=== PATIENT | male | born 1995 | race African-American/Black ===

== ENCOUNTER 2016-04-30 17:00 | Emergency (ER) | payer OTHER ==
[~2016-04-30] VITALS: Ht 187.9 cm; Wt 72.6 kg
[~2016-04-30 17:00] MED LIST: ACETAMINOPHEN325 M2 PO; AMOXICILLIN500 MG PO; AUGMENTIN 500 M1 TAB PO; FLEXERIL10 MG PO; HYDROCODONE BIT1 T11 PO; MIRALAX POWDER17 G1 PO; MOTRIN600 MG PO; MOTRIN800 MG PO; Motrin,Rufen800 MG PO; NAPROSYN500 MG PO; NORCO 5-325 TA1 EACH PO; PENICILLIN VK500 MG PO; PREDNISONE10 MG PO; Peridex 473 ML473 ML PO; ROBITUSSIN AC 110 ML PO; ULTRAM50 MG PO; VENTOLIN H0.09 MG/AC INH; XARE20MG PO; XARELTO15 M1 PO
[2016-04-30 17:31] VITALS: BP 108/80
[2016-05-27] MEDS ORDERED: ZOFRAN ODT4 MG SL (22:53)
[2016-06-08] MEDS ORDERED: Motrin,Rufen800 MG PO (05:06)
[2016-06-08] MEDS ORDERED: AUGMENTIN 500 M1 TAB PO (05:06)
[2016-07-03] MEDS ORDERED: NAPROSYN500 MG PO (21:51)
[2016-07-03] MEDS ORDERED: CYCLOBENZAPRINE10 MG PO (21:51)
== END 2016-04-30 18:40 | disposition home or self-care (01) ==
LOC: ED 17:00
DX: R00.2 Palpitations (principal); Z79.899 Other long term (current) drug therapy; Z86.718 Personal history of other venous thrombosis and embolism

== ENCOUNTER 2016-05-04 04:19 | Emergency (ER) | payer OTHER ==
[~2016-05-04] VITALS: Ht 187.9 cm; Wt 73.0 kg
[2016-05-04] MEDS ORDERED: CELEXA20 MG PO (04:44)
[2016-05-04] MEDS ORDERED: ATIVAN0.5 MG PO (04:45)
[2016-05-04 05:39] VITALS: BP 118/77
[2016-05-27] MEDS ORDERED: ZOFRAN ODT4 MG SL (22:53)
[2016-06-08] MEDS ORDERED: AUGMENTIN 500 M1 TAB PO (05:06)
[2016-06-08] MEDS ORDERED: Motrin,Rufen800 MG PO (05:06)
[2016-07-03] MEDS ORDERED: NAPROSYN500 MG PO (21:51)
[2016-07-03] MEDS ORDERED: CYCLOBENZAPRINE10 MG PO (21:51)
== END 2016-05-04 07:02 | disposition home or self-care (01) ==
LOC: ED 04:19
DX: R00.2 Palpitations (principal); F17.200 Nicotine dependence, unspecified, uncomplicated; J45.909 Unspecified asthma, uncomplicated; D68.2 Hereditary deficiency of other clotting factors; E78.00 Pure hypercholesterolemia, unspecified; Z86.718 Personal history of other venous thrombosis and embolism

== ENCOUNTER 2016-07-12 02:04 | Emergency (ER) | payer SELFPAY ==
[~2016-07-12] VITALS: Ht 187.9 cm; Wt 73.5 kg
[~2016-07-12 02:04] MED LIST changes: +ATIVAN0.5 MG PO; +CELEXA20 MG PO; +CYCLOBENZAPRINE10 MG PO; +ZOFRAN ODT4 MG SL
== END 2016-07-12 06:26 | disposition home or self-care (01) ==
LOC: ED 02:04
DX: R20.2 Paresthesia of skin (principal); J45.909 Unspecified asthma, uncomplicated; E87.6 Hypokalemia; Z86.718 Personal history of other venous thrombosis and embolism; Z79.899 Other long term (current) drug therapy

== ENCOUNTER 2016-08-04 15:37 | Emergency (ER) | payer SELFPAY ==
[~2016-08-04] VITALS: Ht 187.9 cm; Wt 72.6 kg
[2016-08-04 15:43] VITALS: BP 141/71
[2016-08-04 16:03] LABS: BASO # 0.1 10*3/uL (0.0-0.1); BASO % 1.4 % (0.0-1.0); EOS # 0.2 10*3/uL (0.0-0.4); EOS % 4.3 % (1.0-4.0); HEMATOCRIT 43.8 % (42.0-52.0); HEMOGLOBIN 14.4 g/dl (14.0-18.0); LYMPH # 1.8 10*3/uL (1.3-4.4); LYMPH % 31.5 % (27.0-41.0); MEAN CELL VOLUME 83.1 fl (80.0-94.0); MEAN CORPUSCULAR HGB 27.3 pg (27.0-31.0); MEAN CORPUSCULAR HGB CONC 32.9 g/dl (33.0-37.0); MEAN PLATELET VOLUME 9.2 fl (9.6-12.3); MONO # 0.3 10*3/uL (0.1-1.0); MONO % 4.4 % (3.0-9.0); NEUT # 3.3 10*3/uL (2.3-7.9); NEUT % 58.2 % (47.0-73.0); PLATELET COUNT AUTOMATED 242 10*3/uL (130-400); RED BLOOD COUNT 5.27 10*6/uL (4.50-5.90); RED CELL DISTRI WIDTH 12.8 % (0-14.5); WHITE BLOOD COUNT 5.6 10*3/uL (4.8-10.8)
[2016-08-04 16:14] LABS: INTERNATIONAL NORM RATIO 1.3 (2.0-3.5)
[2016-08-04 16:18] LABS: ALBUMIN 4.3 gm/dl (3.1-4.5); ALKALINE PHOSPHATASE 61 U/L (45-117); BILIRUBIN, TOTAL 0.5 mg/dl (0.2-1.0); BUN 13 mg/dl (7-24); CARBON DIOXIDE 26 mmol/L (21-32); CHLORIDE 110 mmol/L (98-107); CPK 232 U/L (39-308); EST GLOM FILT AFRICAN AMERICAN > 60 ml/min; GLUCOSE 86 mg/dL (65-99); MAGNESIUM 2.4 mg/dL (1.5-2.1); POTASSIUM 3.6 mmol/L (3.5-5.1); SGOT/AST 12 IU/L (3-35); SGPT/ALT 14 U/L (12-78); SODIUM 143 mmol/L (136-145); TOTAL PROTEIN 7.4 gm/dL (6.4-8.2)
[2016-08-04 16:19] LABS: C-REACTIVE PROTEIN < 0.29 MG/DL (0-0.3); TROPONIN I < 0.015 ng/ml (<0.045)
[2016-08-04] MEDS ORDERED: XARE20MG PO (17:37)
== END 2016-08-04 17:49 | disposition home or self-care (01) ==
LOC: ED 15:37
PROVIDERS: Student in an Organized Health Care Education/Training Program
DX: M79.603 Pain in arm, unspecified (principal); R53.1 Weakness; J45.909 Unspecified asthma, uncomplicated; Z86.718 Personal history of other venous thrombosis and embolism

== ENCOUNTER 2016-08-22 19:53 | Inpatient (IN) | payer SELFPAY ==
[~2016-08-22] VITALS: Ht 187.9 cm; Wt 70.9 kg
--- NOTE | ~2016-08-22 | WRIGHTHP ---
[place], [place] PATIENT HISTORY AND PHYSICAL EXAM NAME: EULOGIO HAHN [facility] #: [id number] UNIT #: [id number] ROOM: 416 DOCTOR: LA INFANTE MD BIRTHDATE: [birth year] DOS: 08/23/2016 SUBJECTIVE: The patient has been admitted to the hospital last evening with history of chest pain. He started having this chest pain radiated to the shoulder. The patient is having history of factor V Leiden deficiency due to that, he gets clotting of his veins. 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 The patient at present is not in distress. He denies any chest pain, no difficulty breathing, no nausea, no vomiting. OBJECTIVE: VITAL SIGNS: His temperature is 97.3, pulse is 74, respirations 18, and blood pressure 130/72, pulse oximetry is 100. ENT: Unremarkable. No glandular enlargement. NECK: Trachea is center. Neck veins are not distended. EXTREMITIES: Carotid pulses are normal. There is some swelling of the right upper arm, but there is no tenderness and pulsation is normally in both the arms. HEART: Regular, no murmur. LUNGS: Clear. No crepitus or rhonchi. ABDOMEN: Soft. Liver and spleen not palpable. No area of tenderness. No mass palpable. PAST MEDICAL HISTORY: The patient has history of acute deep vein thrombosis of the right upper extremity, also history of thrombosis right basilic vein, history of asthma and history of depression. The patient is chewing tobacco, nicotine dependence I have counseled him in detail that he should stop chewing tobacco. He does not drink any alcohol and does not do any street drugs. FAMILY HISTORY: He is adopted, so he does not know anything about his family. ALLERGIES: No known allergy. The patient is not taking any present medication, but he is to be taking Xarelto 20 mg daily. DIAGNOSES: Factor V Leiden deficiency leading to reckless attack of deep vein thrombosis with chest pain, which seems to be noncardiac origin. HOSPITAL COURSE: The patient at present is feeling comfortable. He will receive his dose of Xarelto today and also he will get 2 extra pills of Xarelto or he can by his Xarelto on Thursday and we will make arrangement for that. He will be kept some samples from my office and we will follow him in the office in 1 week. LABORATORY DATA: CBC is fairly normal. Protime 11. Chest x-ray, no acute disease. Comprehensive metabolic profile shows potassium 3.2, magnesium 2.3. [place], [place] PATIENT HISTORY AND PHYSICAL EXAM NAME: EULOGIO HAHN UNIT #: [id number] ROOM: [facility] DOCTOR: LA INFANTE MD BIRTHDATE: [birth year] show fairly good. His CK-MB and troponin level on 3 different occasions is normal. Hemoglobin is 5.4. Ultrasound of the upper extremity no deep vein thrombosis. LA INFANTE MD CM:HISPHYS:PATIENT HISTORY AND PHYSICAL EXAMINATION 1507 1829 LA INFANTE MD 08/23/16 1830 interface
[2016-08-22 11:49] VITALS: BP 110/62
[2016-08-22 19:59] VITALS: BP 136/84
[2016-08-22 20:41] LABS: BASO # 0.1 10*3/uL (0.0-0.1); BASO % 1.2 % (0.0-1.0); EOS # 0.3 10*3/uL (0.0-0.4); EOS % 4.8 % (1.0-4.0); HEMATOCRIT 43.1 % (42.0-52.0); HEMOGLOBIN 14.1 g/dl (14.0-18.0); LYMPH % 46.5 % (27.0-41.0); MEAN CELL VOLUME 83.7 fl (80.0-94.0); MEAN CORPUSCULAR HGB 27.4 pg (27.0-31.0); MEAN CORPUSCULAR HGB CONC 32.7 g/dl (33.0-37.0); MEAN PLATELET VOLUME 9.4 fl (9.6-12.3); MONO # 0.3 10*3/uL (0.1-1.0); MONO % 5.2 % (3.0-9.0); NEUT # 2.7 10*3/uL (2.3-7.9); NEUT % 42.1 % (47.0-73.0); PLATELET COUNT AUTOMATED 237 10*3/uL (130-400); RED BLOOD COUNT 5.15 10*6/uL (4.50-5.90); WHITE BLOOD COUNT 6.5 10*3/uL (4.8-10.8)
[2016-08-22 20:59] LABS: ALBUMIN 4.4 gm/dl (3.1-4.5); ALKALINE PHOSPHATASE 57 U/L (45-117); BILIRUBIN, TOTAL 0.6 mg/dl (0.2-1.0); BUN 15 mg/dl (7-24); CARBON DIOXIDE 26 mmol/L (21-32); CHLORIDE 105 mmol/L (98-107); CPK 76 U/L (39-308); EST GLOM FILT AFRICAN AMERICAN > 60 ml/min; GLUCOSE 84 mg/dL (65-99); MAGNESIUM 2.3 mg/dL (1.5-2.1); POTASSIUM 3.4 mmol/L (3.5-5.1); SGOT/AST 10 IU/L (3-35); SGPT/ALT 11 U/L (12-78); SODIUM 141 mmol/L (136-145); TOTAL PROTEIN 7.3 gm/dL (6.4-8.2)
[2016-08-22 21:02] LABS: CKMB < 0.5 ng/ml (0.5-3.6); TROPONIN I < 0.015 ng/ml (<0.045)
[2016-08-22 23:49] VITALS: BP 110/62
[2016-08-23] VITALS: BP 110/62
[2016-08-23 00:44] LABS: CPK 71 U/L (39-308)
[2016-08-23 00:45] LABS: CKMB < 0.5 ng/ml (0.5-3.6); TROPONIN I < 0.015 ng/ml (<0.045)
[2016-08-23 06:56] LABS: BASO # 0.1 10*3/uL (0.0-0.1); BASO % 1.2 % (0.0-1.0); EOS # 0.3 10*3/uL (0.0-0.4); EOS % 5.9 % (1.0-4.0); HEMATOCRIT 42.7 % (42.0-52.0); LYMPH # 2.6 10*3/uL (1.3-4.4); LYMPH % 50.7 % (27.0-41.0); MEAN CELL VOLUME 83.2 fl (80.0-94.0); MEAN CORPUSCULAR HGB 27.3 pg (27.0-31.0); MEAN CORPUSCULAR HGB CONC 32.8 g/dl (33.0-37.0); MONO # 0.3 10*3/uL (0.1-1.0); MONO % 5.7 % (3.0-9.0); NEUT # 1.8 10*3/uL (2.3-7.9); NEUT % 36.3 % (47.0-73.0); PLATELET COUNT AUTOMATED 223 10*3/uL (130-400); RED BLOOD COUNT 5.13 10*6/uL (4.50-5.90); WHITE BLOOD COUNT 5.1 10*3/uL (4.8-10.8)
[2016-08-23 07:07] LABS: CPK 64 U/L (39-308)
[2016-08-23 07:08] LABS: CKMB < 0.5 ng/ml (0.5-3.6); TROPONIN I < 0.015 ng/ml (<0.045)
[2016-08-23 07:32] LABS: ALBUMIN 3.9 gm/dl (3.1-4.5); BUN 13 mg/dl (7-24); CARBON DIOXIDE 26 mmol/L (21-32); CHLORIDE 107 mmol/L (98-107); GLUCOSE 74 mg/dL (65-99); POTASSIUM 3.6 mmol/L (3.5-5.1); SODIUM 139 mmol/L (136-145)
[2016-08-23 07:41] LABS: ALKALINE PHOSPHATASE 52 U/L (45-117); BILIRUBIN, TOTAL 0.9 mg/dl (0.2-1.0); CHOLESTEROL 120 mg/dL (<200); EST GLOM FILT AFRICAN AMERICAN > 60 ml/min; FREE T4 0.94 ng/dl (0.76-1.46); HDL CHOLESTEROL 47 mg/dl (40-60); LDL CHOLESTEROL 64 mg/dL (9-159); MAGNESIUM 2.2 mg/dL (1.5-2.1); PHOSPHOROUS 3.7 mg/dL (2.5-4.9); SGOT/AST 7 IU/L (3-35); SGPT/ALT 11 U/L (12-78); THYROID STIM HORMONE (HS) 0.449 uIU/ml (0.358-4.75); TOTAL PROTEIN 6.7 gm/dL (6.4-8.2); TRIGLYCERIDES 46 mg/dl (<150); VLDL CHOLESTEROL 9 mg/dL (6-40)
[2016-08-23 07:53] LABS: INTERNATIONAL NORM RATIO 1.2 (2.0-3.5); PROTHROMBIN TIME 12.7 SECONDS (9.0-12.4)
[2016-08-23 08:00] VITALS: BP 110/60
[2016-08-23 08:16] LABS: HEMOGLOBIN A1c 5.4 % (4.8-5.6)
[2016-08-23 12:00] VITALS: BP 109/52
[2016-08-23 12:13] LABS: CKMB < 0.5 ng/ml (0.5-3.6); CPK 65 U/L (39-308); TROPONIN I < 0.015 ng/ml (<0.045)
[2016-08-25 11:37] LABS: FOLIC ACID 6.65 ng/mL (>5.38)
== END 2016-08-23 15:54 | disposition home or self-care (01) | DRG 313 ==
LOC: ED 19:53 → EDHOLD 22:30 → 4E 23:19
PROVIDERS: Hospitalist; Registered Nurse
DX: R07.9 Chest pain, unspecified (principal); D68.51 Activated protein C resistance; F32.9 Major depressive disorder, single episode, unspecified; J45.909 Unspecified asthma, uncomplicated; Z79.01 Long term (current) use of anticoagulants; Z79.899 Other long term (current) drug therapy; Z82.49 Family history of ischemic heart disease and other diseases of the circulatory system; Z80.9 Family history of malignant neoplasm, unspecified; Z72.89 Other problems related to lifestyle; Z86.718 Personal history of other venous thrombosis and embolism; Z71.6 Tobacco abuse counseling

== ENCOUNTER 2016-09-23 09:52 | Emergency (ER) | payer SELFPAY ==
[~2016-09-23] VITALS: Ht 187.9 cm; Wt 74.4 kg
[2016-09-23 10:20] VITALS: BP 112/74
== END 2016-09-23 11:42 | disposition home or self-care (01) ==
LOC: ED 09:52
DX: J02.9 Acute pharyngitis, unspecified (principal); F41.9 Anxiety disorder, unspecified; J45.909 Unspecified asthma, uncomplicated; Z79.899 Other long term (current) drug therapy; Z86.718 Personal history of other venous thrombosis and embolism

== ENCOUNTER 2016-10-05 11:01 | Emergency (ER) | payer SELFPAY ==
[2016-10-05 11:04] VITALS: BP 136/66
[2016-10-05] MEDS ORDERED: 'PARAFON FORTE500 M1 PO (11:30)
[2016-10-05] MEDS ORDERED: NAPROSYN500 MG PO (11:30)
== END 2016-10-05 12:21 | disposition home or self-care (01) ==
LOC: ED 11:01
DX: M79.601 Pain in right arm (principal); R03.0 Elevated blood-pressure reading, without diagnosis of hypertension; J45.909 Unspecified asthma, uncomplicated; Z79.899 Other long term (current) drug therapy; Z86.718 Personal history of other venous thrombosis and embolism

== ENCOUNTER 2016-10-26 01:58 | Emergency (ER) | payer SELFPAY ==
[~2016-10-26] VITALS: Ht 187.9 cm; Wt 74.8 kg
[~2016-10-26 01:58] MED LIST changes: +'PARAFON FORTE500 M1 PO
[2016-10-26 02:05] VITALS: BP 130/50
[2016-10-26] MEDS ORDERED: GAS RELIEF 8080 MG PO (03:17)
[2016-10-26] MEDS ORDERED: CARAFATE1 G1 PO (03:17)
[2016-10-26] MEDS ORDERED: NEXIUM40 MG PO (03:17)
== END 2016-10-26 03:28 | disposition home or self-care (01) ==
LOC: ED 01:58
DX: R10.13 Epigastric pain (principal); R07.89 Other chest pain; R42 Dizziness and giddiness; R53.1 Weakness; R41.0 Disorientation, unspecified; J45.909 Unspecified asthma, uncomplicated; F17.220 Nicotine dependence, chewing tobacco, uncomplicated; Z79.899 Other long term (current) drug therapy; Z86.718 Personal history of other venous thrombosis and embolism

== ENCOUNTER 2016-12-13 17:00 | Emergency (ER) | payer OTHER ==
[~2016-12-13] VITALS: Wt 72.6 kg
[~2016-12-13 17:00] MED LIST changes: +CARAFATE1 G1 PO; +GAS RELIEF 8080 MG PO; +NEXIUM40 MG PO
[2016-12-13 17:09] VITALS: BP 132/77
[2016-12-13 17:37] LABS: BASO # 0.1 10*3/uL (0.0-0.1); EOS # 0.3 10*3/uL (0.0-0.4); EOS % 4.2 % (1.0-4.0); HEMATOCRIT 41.5 % (42.0-52.0); LYMPH # 2.2 10*3/uL (1.3-4.4); LYMPH % 34.9 % (27.0-41.0); MEAN CELL VOLUME 82.3 fl (80.0-94.0); MEAN CORPUSCULAR HGB 27.8 pg (27.0-31.0); MEAN CORPUSCULAR HGB CONC 33.7 g/dl (33.0-37.0); MEAN PLATELET VOLUME 9.4 fl (9.6-12.3); MONO # 0.3 10*3/uL (0.1-1.0); MONO % 4.7 % (3.0-9.0); NEUT # 3.4 10*3/uL (2.3-7.9); PLATELET COUNT AUTOMATED 239 10*3/uL (130-400); RED BLOOD COUNT 5.04 10*6/uL (4.50-5.90); RED CELL DISTRI WIDTH 13.3 % (0-14.5); WHITE BLOOD COUNT 6.2 10*3/uL (4.8-10.8)
[2016-12-13 17:54] LABS: ALBUMIN 4.4 gm/dl (3.1-4.5); ALKALINE PHOSPHATASE 65 U/L (45-117); BILIRUBIN, TOTAL 0.5 mg/dl (0.2-1.0); BUN 13 mg/dl (7-24); CARBON DIOXIDE 24 mmol/L (21-32); CHLORIDE 108 mmol/L (98-107); EST GLOM FILT AFRICAN AMERICAN > 60 ml/min; GLUCOSE 87 mg/dL (65-99); POTASSIUM 3.3 mmol/L (3.5-5.1); SGOT/AST 9 IU/L (3-35); SGPT/ALT 14 U/L (12-78); SODIUM 142 mmol/L (136-145); TOTAL PROTEIN 7.7 gm/dL (6.4-8.2)
== END 2016-12-13 18:28 | disposition home or self-care (01) ==
LOC: ED 17:00
PROVIDERS: Nurse Practitioner Family
DX: R42 Dizziness and giddiness (principal); T48.6X5A Adverse effect of antiasthmatics, initial encounter; R03.0 Elevated blood-pressure reading, without diagnosis of hypertension; Z79.899 Other long term (current) drug therapy; Y92.9 Unspecified place or not applicable

== ENCOUNTER 2016-12-14 01:10 | Emergency (ER) | payer OTHER ==
[~2016-12-14] VITALS: Ht 187.9 cm; Wt 72.6 kg
--- NOTE | ~2016-12-14 | EKG ---
[place], [place] ELECTROCARDIOGRAM REPORT NAME: EULOGIO HAHN UNIT #: [id number] ROOM: DOCTOR: STACY CRENSHAW MD BIRTHDATE: [birth year] DOS: 12/14/2016 TIME: 01:45:24 RATE AND RHYTHM: Sinus bradycardia at 51 beats per minute. HI interval 240 milliseconds, QRS duration 103 milliseconds. Corrected QT interval is 412 milliseconds, QRS axis is 78. IMPRESSION: Sinus rhythm with prolonged HI interval possibly . STACY CRENSHAW MD CM:EKGRPT:ELECTROCARDIOGRAM REPORT 1434 1456 STACY CRENSHAW MD
[2016-12-14 01:55] LABS: BASO # 0.1 10*3/uL (0.0-0.1); BASO % 0.8 % (0.0-1.0); EOS # 0.2 10*3/uL (0.0-0.4); EOS % 3.1 % (1.0-4.0); HEMATOCRIT 42.3 % (42.0-52.0); HEMOGLOBIN 13.9 g/dl (14.0-18.0); LYMPH # 2.9 10*3/uL (1.3-4.4); LYMPH % 44.5 % (27.0-41.0); MEAN CORPUSCULAR HGB 26.9 pg (27.0-31.0); MEAN CORPUSCULAR HGB CONC 32.9 g/dl (33.0-37.0); MEAN PLATELET VOLUME 9.9 fl (9.6-12.3); MONO # 0.3 10*3/uL (0.1-1.0); MONO % 4.9 % (3.0-9.0); NEUT % 46.5 % (47.0-73.0); PLATELET COUNT AUTOMATED 239 10*3/uL (130-400); RED BLOOD COUNT 5.16 10*6/uL (4.50-5.90); RED CELL DISTRI WIDTH 13.4 % (0-14.5); WHITE BLOOD COUNT 6.5 10*3/uL (4.8-10.8)
[2016-12-14 02:08] LABS: INTERNATIONAL NORM RATIO 1.2 (2.0-3.5)
[2016-12-14 02:12] LABS: ALBUMIN 4.2 gm/dl (3.1-4.5); ALKALINE PHOSPHATASE 57 U/L (45-117); BUN 10 mg/dl (7-24); CHLORIDE 108 mmol/L (98-107); CREATININE 1.11 mg/dL (0.70-1.30); LIPASE 161 U/L (73-393); MAGNESIUM 2.4 mg/dL (1.5-2.1); POTASSIUM 3.2 mmol/L (3.5-5.1); SGOT/AST 12 IU/L (3-35); SGPT/ALT 11 U/L (12-78); SODIUM 139 mmol/L (136-145); TOTAL PROTEIN 7.4 gm/dL (6.4-8.2)
[2016-12-14 02:14] LABS: TROPONIN I < 0.015 ng/ml (<0.045)
[2016-12-14 05:35] VITALS: BP 123/72
== END 2016-12-14 05:38 | disposition home or self-care (01) ==
LOC: ED 01:10
PROVIDERS: Student in an Organized Health Care Education/Training Program
DX: T78.40XA Allergy, unspecified, initial encounter (principal); R07.9 Chest pain, unspecified; R53.1 Weakness; E86.0 Dehydration; R11.0 Nausea; J45.909 Unspecified asthma, uncomplicated; Z79.899 Other long term (current) drug therapy; Z86.718 Personal history of other venous thrombosis and embolism; X58.XXXA Exposure to other specified factors, initial encounter

== ENCOUNTER 2017-01-08 19:47 | Emergency (ER) | payer OTHER ==
[~2017-01-08] VITALS: Ht 187.9 cm; Wt 72.6 kg
[2017-01-08 20:11] LABS: BASO # 0.1 10*3/uL (0.0-0.1); BASO % 1.3 % (0.0-1.0); EOS # 0.4 10*3/uL (0.0-0.4); EOS % 6.9 % (1.0-4.0); HEMATOCRIT 42.3 % (42.0-52.0); HEMOGLOBIN 13.9 g/dl (14.0-18.0); LYMPH # 2.9 10*3/uL (1.3-4.4); LYMPH % 53.1 % (27.0-41.0); MEAN CELL VOLUME 81.8 fl (80.0-94.0); MEAN CORPUSCULAR HGB 26.9 pg (27.0-31.0); MEAN CORPUSCULAR HGB CONC 32.9 g/dl (33.0-37.0); MEAN PLATELET VOLUME 9.7 fl (9.6-12.3); MONO # 0.3 10*3/uL (0.1-1.0); MONO % 6.1 % (3.0-9.0); NEUT # 1.7 10*3/uL (2.3-7.9); NEUT % 32.4 % (47.0-73.0); PLATELET COUNT AUTOMATED 238 10*3/uL (130-400); RED BLOOD COUNT 5.17 10*6/uL (4.50-5.90); RED CELL DISTRI WIDTH 13.4 % (0-14.5); WHITE BLOOD COUNT 5.4 10*3/uL (4.8-10.8)
[2017-01-08 20:21] LABS: ACT PARTIAL THROMBO TIME 34.2 SECONDS (20.8-31.5); INTERNATIONAL NORM RATIO 1.3 (2.0-3.5)
[2017-01-08 20:28] LABS: ALBUMIN 4.4 gm/dl (3.1-4.5); ALKALINE PHOSPHATASE 57 U/L (45-117); BUN 14 mg/dl (7-24); CHLORIDE 108 mmol/L (98-107); MAGNESIUM 2.1 mg/dL (1.5-2.1); POTASSIUM 3.5 mmol/L (3.5-5.1); SGOT/AST 6 IU/L (3-35); SGPT/ALT 12 U/L (12-78); SODIUM 142 mmol/L (136-145); TOTAL PROTEIN 7.6 gm/dL (6.4-8.2); TROPONIN I < 0.015 ng/ml (<0.045)
[2017-01-08] MEDS ORDERED: ZANTAC 150150 MG PO (21:22)
[2017-01-08 21:27] VITALS: BP 126/62
== END 2017-01-08 21:31 | disposition home or self-care (01) ==
LOC: ED 19:47
PROVIDERS: Physician Assistant
DX: R10.13 Epigastric pain (principal); F17.200 Nicotine dependence, unspecified, uncomplicated; D68.51 Activated protein C resistance; Z79.899 Other long term (current) drug therapy; Z86.718 Personal history of other venous thrombosis and embolism

== ENCOUNTER 2017-02-01 11:44 | Emergency (ER) | payer OTHER ==
[~2017-02-01] VITALS: Ht 187.9 cm; Wt 72.6 kg
[~2017-02-01 11:44] MED LIST changes: +ZANTAC 150150 MG PO
[2017-02-01 11:48] VITALS: BP 121/70
[2017-02-01] MEDS ORDERED: AVPAK AZITHROM250 MG PO ×2 (13:04→13:08)
[2017-02-01] MEDS ORDERED: TESSALON PERLE100 M1 PO ×2 (13:04→13:08)
== END 2017-02-01 13:12 | disposition home or self-care (01) ==
LOC: ED 11:44
DX: J40 Bronchitis, not specified as acute or chronic (principal); Z79.899 Other long term (current) drug therapy

== ENCOUNTER 2017-02-15 23:06 | Emergency (ER) | payer OTHER ==
[~2017-02-15] VITALS: Ht 187.9 cm; Wt 74.8 kg
[~2017-02-15 23:06] MED LIST changes: +AVPAK AZITHROM250 MG PO; +TESSALON PERLE100 M1 PO
[2017-02-15 23:10] VITALS: BP 109/76
[2017-02-16] MEDS ORDERED: AMOXICILLIN500 M2 PO (00:14)
[2017-02-16] MEDS ORDERED: PEPCID20 MG PO (00:14)
== END 2017-02-16 01:07 | disposition home or self-care (01) ==
LOC: ED 23:06
DX: J02.9 Acute pharyngitis, unspecified (principal); F41.9 Anxiety disorder, unspecified; K21.9 Gastro-esophageal reflux disease without esophagitis; F17.200 Nicotine dependence, unspecified, uncomplicated; D68.2 Hereditary deficiency of other clotting factors; J45.909 Unspecified asthma, uncomplicated; Z79.899 Other long term (current) drug therapy; Z86.718 Personal history of other venous thrombosis and embolism

== ENCOUNTER 2017-03-05 20:51 | Emergency (ER) | payer MEDICAID ==
[~2017-03-05] VITALS: Wt 77.1 kg
[~2017-03-05 20:51] MED LIST changes: +AMOXICILLIN500 M2 PO; +PEPCID20 MG PO
[2017-03-05 20:55] VITALS: BP 136/70
[2017-03-05] MEDS ORDERED: VENTOLIN 02.5 MG/3 M INH (21:41)
== END 2017-03-05 21:45 | disposition home or self-care (01) ==
LOC: ED 20:51
DX: J45.901 Unspecified asthma with (acute) exacerbation (principal); F17.200 Nicotine dependence, unspecified, uncomplicated; Z79.899 Other long term (current) drug therapy

== ENCOUNTER 2017-03-16 22:39 | Emergency (ER) | payer MEDICAID ==
[~2017-03-16] VITALS: Ht 187.9 cm; Wt 77.6 kg
[~2017-03-16 22:39] MED LIST changes: +VENTOLIN 02.5 MG/3 M INH
[2017-03-16 22:44] VITALS: BP 137/55
== END 2017-03-17 00:34 | disposition home or self-care (01) ==
LOC: ED 22:39
DX: R51 Headache (principal); F17.200 Nicotine dependence, unspecified, uncomplicated; K21.9 Gastro-esophageal reflux disease without esophagitis; J45.909 Unspecified asthma, uncomplicated; D68.2 Hereditary deficiency of other clotting factors; Z86.718 Personal history of other venous thrombosis and embolism; Z79.899 Other long term (current) drug therapy

== ENCOUNTER 2017-03-22 19:56 | Emergency (ER) | payer MEDICAID ==
[~2017-03-22] VITALS: Ht 187.9 cm; Wt 77.1 kg
[2017-03-22 20:02] VITALS: BP 127/66
[2017-03-22 20:28] LABS: BASO # 0.1 10*3/uL (0.0-0.1); BASO % 1.7 % (0.0-1.0); EOS # 0.4 10*3/uL (0.0-0.4); EOS % 7.4 % (1.0-4.0); HEMATOCRIT 48.3 % (42.0-52.0); HEMOGLOBIN 15.8 g/dl (14.0-18.0); LYMPH % 42.6 % (27.0-41.0); MEAN CELL VOLUME 83.3 fl (80.0-94.0); MEAN CORPUSCULAR HGB 27.2 pg (27.0-31.0); MEAN CORPUSCULAR HGB CONC 32.7 g/dl (33.0-37.0); MEAN PLATELET VOLUME 9.7 fl (9.6-12.3); MONO # 0.2 10*3/uL (0.1-1.0); MONO % 3.4 % (3.0-9.0); NEUT # 2.1 10*3/uL (2.3-7.9); NEUT % 44.7 % (47.0-73.0); PLATELET COUNT AUTOMATED 236 10*3/uL (130-400); RED CELL DISTRI WIDTH 13.3 % (0-14.5); WHITE BLOOD COUNT 4.7 10*3/uL (4.8-10.8)
[2017-03-22 20:39] LABS: ACT PARTIAL THROMBO TIME 33.6 SECONDS (20.8-31.5); INTERNATIONAL NORM RATIO 1.3 (2.0-3.5)
[2017-03-22 20:45] LABS: ALBUMIN 4.5 gm/dl (3.1-4.5); ALKALINE PHOSPHATASE 66 U/L (45-117); BUN 10 mg/dl (7-24); CHLORIDE 105 mmol/L (98-107); CREATININE 1.19 mg/dL (0.70-1.30); SGOT/AST 9 IU/L (3-35); SGPT/ALT 14 U/L (12-78); SODIUM 141 mmol/L (136-145); TOTAL PROTEIN 8.1 gm/dL (6.4-8.2)
[2017-03-22] MEDS ORDERED: TYLENOL325 M1 PO (23:24)
== END 2017-03-23 00:08 | disposition home or self-care (01) ==
LOC: ED 19:56
PROVIDERS: Physician Assistant
DX: R07.89 Other chest pain (principal); F41.9 Anxiety disorder, unspecified; K21.9 Gastro-esophageal reflux disease without esophagitis

== ENCOUNTER 2017-05-21 02:26 | Emergency (ER) | payer MEDICAID ==
[~2017-05-21] VITALS: Ht 187.9 cm; Wt 72.6 kg
--- NOTE | ~2017-05-21 | EKG ---
[place], [place] ELECTROCARDIOGRAM REPORT NAME: EULOGIO HAHN UNIT #: [id number] ROOM: DOCTOR: SYDNEE MELCHOR MD BIRTHDATE: [birth year] DOS: 05/21/2017 TIME: 0228 hours. IMPRESSION: 1. Sinus bradycardia at 52 beats per minute. 2. Early repolarizations are present. 3. The tracing is normal. 4. No previous tracing is available for comparison. SYDNEE MELCHOR MD CM:EKGRPT:ELECTROCARDIOGRAM REPORT 1716 2259 SYDNEE MELCHOR MD
--- NOTE | ~2017-05-21 | EKG ---
[place], [place] ELECTROCARDIOGRAM REPORT NAME: EULOGIO HAHN UNIT #: [id number] ROOM: DOCTOR: SYDNEE MELCHOR MD BIRTHDATE: [birth year] DOS: 05/21/2017 TIME: 0337 hours. IMPRESSION: 1. Sinus bradycardia at 45 beats per minute. 2. Borderline measurement for first-degree heart block. 3. Early repolarization changes are present. 4. No significant change from an ECG done about an hour earlier. SYDNEE MELCHOR MD CM:EKGRPT:ELECTROCARDIOGRAM REPORT 1716 2301 SYDNEE MELCHOR MD
--- NOTE | ~2017-05-21 | EKG ---
[place], [place] ELECTROCARDIOGRAM REPORT NAME: EULOGIO HAHN UNIT #: [id number] ROOM: DOCTOR: SYDNEE MELCHOR MD BIRTHDATE: [birth year] DOS: 05/21/2017 TIME: 0407 hours. IMPRESSION: 1. Sinus bradycardia at 51 beats per minute. 2. Early repolarization changes are present. 3. There is a possibility of acute pericarditis. 4. No significant change from an ECG done 30 minutes earlier. SYDNEE MELCHOR MD CM:EKGRPT:ELECTROCARDIOGRAM REPORT 1716 2303 SYDNEE MELCHOR MD
[~2017-05-21 02:26] MED LIST changes: +TYLENOL325 M1 PO
[2017-05-21 02:50] LABS: BASO # 0.1 10*3/uL (0.0-0.1); BASO % 1.2 % (0.0-1.0); EOS # 0.3 10*3/uL (0.0-0.4); EOS % 4.9 % (1.0-4.0); HEMOGLOBIN 14.4 g/dl (14.0-18.0); LYMPH # 3.3 10*3/uL (1.3-4.4); MEAN CELL VOLUME 80.1 fl (80.0-94.0); MEAN CORPUSCULAR HGB 26.8 pg (27.0-31.0); MEAN CORPUSCULAR HGB CONC 33.5 g/dl (33.0-37.0); MEAN PLATELET VOLUME 9.7 fl (9.6-12.3); MONO # 0.2 10*3/uL (0.1-1.0); MONO % 4.2 % (3.0-9.0); NEUT # 1.7 10*3/uL (2.3-7.9); NEUT % 30.5 % (47.0-73.0); PLATELET COUNT AUTOMATED 235 10*3/uL (130-400); RED BLOOD COUNT 5.37 10*6/uL (4.50-5.90); RED CELL DISTRI WIDTH 13.2 % (0-14.5); WHITE BLOOD COUNT 5.7 10*3/uL (4.8-10.8)
[2017-05-21 03:01] LABS: ACT PARTIAL THROMBO TIME 25.9 SECONDS (20.8-31.5); INTERNATIONAL NORM RATIO 1.1 (2.0-3.5)
[2017-05-21 03:17] LABS: ALBUMIN 4.5 gm/dl (3.1-4.5); ALKALINE PHOSPHATASE 60 U/L (45-117); BUN 11 mg/dl (7-24); CHLORIDE 106 mmol/L (98-107); POTASSIUM 3.5 mmol/L (3.5-5.1); SGOT/AST 10 IU/L (3-35); SGPT/ALT 12 U/L (12-78); SODIUM 142 mmol/L (136-145); TOTAL PROTEIN 7.4 gm/dL (6.4-8.2)
[2017-05-21 03:19] LABS: TROPONIN I < 0.015 ng/ml (<0.045)
[2017-05-21 03:55] VITALS: BP 111/68
== END 2017-05-21 04:32 | disposition home or self-care (01) ==
LOC: ED 02:26
PROVIDERS: Emergency Medicine Emergency Medical Services
DX: F41.1 Generalized anxiety disorder (principal); F41.0 Panic disorder [episodic paroxysmal anxiety]; K21.9 Gastro-esophageal reflux disease without esophagitis; J45.901 Unspecified asthma with (acute) exacerbation; Z86.718 Personal history of other venous thrombosis and embolism

== ENCOUNTER 2017-06-03 22:20 | Emergency (ER) | payer OTHER ==
[~2017-06-03] VITALS: Ht 187.9 cm; Wt 72.6 kg
--- NOTE | ~2017-06-03 | EKG ---
[place], [place] ELECTROCARDIOGRAM REPORT NAME: EULOGIO HAHN UNIT #: [id number] ROOM: DOCTOR: SYDNEE MELCHOR MD BIRTHDATE: [birth year] DOS: 06/03/2017 TIME: 2233 hours. SYDNEE MELCHOR MD CM:EKGRPT:ELECTROCARDIOGRAM REPORT 1126 1205 SYDNEE MELCHOR MD
--- NOTE | ~2017-06-03 | EKG ---
[place], [place] ELECTROCARDIOGRAM REPORT NAME: EULOGIO HAHN UNIT #: [id number] ROOM: DOCTOR: SYDNEE MELCHOR MD BIRTHDATE: [birth year] DOS: 06/04/2017 TIME: 0022 hours. IMPRESSION: 1. Sinus bradycardia at 53 beats per minute. 2. Early repolarization changes. 3. The tracing is normal. 4. No significant change from the ECG of the previous day. SYDNEE MELCHOR MD CM:EKGRPT:ELECTROCARDIOGRAM REPORT 1126 1235 SYDNEE MELCHOR MD
--- NOTE | ~2017-06-03 | EKG ---
[place], [place] ELECTROCARDIOGRAM REPORT NAME: EULOGIO HAHN UNIT #: [id number] ROOM: DOCTOR: SYDNEE MELCHOR MD BIRTHDATE: [birth year] DOS: 06/03/2017 TIME: 2350 hours. IMPRESSION: 1. Sinus rhythm at 58 beats per minute. 2. Early repolarization changes. 3. Normal ECG. 4. No significant change from the ECG done at 2233 hours of the same day. SYDNEE MELCHOR MD CM:EKGRPT:ELECTROCARDIOGRAM REPORT 1126 1233 SYDNEE MELCHOR MD
[2017-06-03 22:47] LABS: BASO # 0.1 10*3/uL (0.0-0.1); BASO % 1.1 % (0.0-1.0); EOS # 0.2 10*3/uL (0.0-0.4); EOS % 4.3 % (1.0-4.0); HEMATOCRIT 44.7 % (42.0-52.0); HEMOGLOBIN 14.7 g/dl (14.0-18.0); LYMPH # 2.3 10*3/uL (1.3-4.4); MEAN CELL VOLUME 81.9 fl (80.0-94.0); MEAN CORPUSCULAR HGB 26.9 pg (27.0-31.0); MEAN CORPUSCULAR HGB CONC 32.9 g/dl (33.0-37.0); MEAN PLATELET VOLUME 9.9 fl (9.6-12.3); MONO # 0.3 10*3/uL (0.1-1.0); MONO % 4.8 % (3.0-9.0); NEUT # 2.7 10*3/uL (2.3-7.9); NEUT % 48.6 % (47.0-73.0); PLATELET COUNT AUTOMATED 234 10*3/uL (130-400); RED BLOOD COUNT 5.46 10*6/uL (4.50-5.90); RED CELL DISTRI WIDTH 13.4 % (0-14.5); WHITE BLOOD COUNT 5.6 10*3/uL (4.8-10.8)
[2017-06-03 22:59] LABS: ACT PARTIAL THROMBO TIME 25.1 SECONDS (20.8-31.5); INTERNATIONAL NORM RATIO 1.1 (2.0-3.5)
[2017-06-03 23:04] LABS: ALBUMIN 4.6 gm/dl (3.1-4.5); ALKALINE PHOSPHATASE 63 U/L (45-117); BUN 11 mg/dl (7-24); CHLORIDE 106 mmol/L (98-107); CREATININE 1.31 mg/dL (0.70-1.30); SGOT/AST 7 IU/L (3-35); SGPT/ALT 13 U/L (12-78); SODIUM 140 mmol/L (136-145); TOTAL PROTEIN 7.7 gm/dL (6.4-8.2)
[2017-06-03 23:13] LABS: TROPONIN I < 0.015 ng/ml (<0.045)
[2017-06-04 00:32] VITALS: BP 112/65
[2017-06-04] MEDS ORDERED: XANAX1 MG PO (00:39)
== END 2017-06-04 00:43 | disposition home or self-care (01) ==
LOC: ED 22:20
PROVIDERS: Emergency Medicine Emergency Medical Services
DX: F41.1 Generalized anxiety disorder (principal); F43.0 Acute stress reaction; K21.9 Gastro-esophageal reflux disease without esophagitis; J45.909 Unspecified asthma, uncomplicated; Z86.73 Personal history of transient ischemic attack (TIA), and cerebral infarction without residual deficits; Z79.899 Other long term (current) drug therapy

== ENCOUNTER → 2017-06-17 | Day surgery (SDC) | payer OTHER ==
[~2017-06-17] VITALS: Ht 187.9 cm; Wt 77.1 kg
[~2017-06-17] MED LIST changes: +PANTOPRAZOLE SO40 MG PO; +XANAX1 MG PO
--- NOTE | ~2017-06-17 | O ---
[place], [place] OPERATIVE NOTE NAME: EULOGIO HAHN UNIT #: [id number] ROOM: DOCTOR: INA FUENTESCHARITY BIRTHDATE: [birth year] DOS: 06/17/2017 HISTORY OF PRESENT ILLNESS: A 22-year-old patient who presented with a chief complaint of epigastric abdominal pain, dyspepsia, eructation; on Protonix and Zantac and Tums. Continues with chewing of tobacco. The patient with history of hypercoagulable state, factor V deficiency. ALLERGIES: No known medication. FAMILY HISTORY: Adopted. PAST SURGICAL HISTORY: Noncontributory. PAST MEDICAL HISTORY: Asthma, anxiety, and hypercoagulable state. SOCIAL HISTORY: Nonsmoker and nonalcohol consumer; however, tobacco chewer. PROCEDURE: Today's procedure part of investigation is panendoscopy plus biopsy. PREMEDICATION: Versed and Diprivan. SCOPE: Olympus forward-viewing gastroscope Q10 video. REPORT: After putting the patient in left lateral position and application of lubricant to the scope, the scope was introduced. Thereafter, under direct visualization, advanced through the length of esophagus without difficulty. Evidence of esophagitis secondary to reflux and most likely secondary to swallowing. Continue swallowing of tobacco juices was identified. Gastric pouch was entered. Gastritis of mild degree seen. Duodenal bulb, second and third part within normal limits. The patient extubated after antral biopsy was obtained. GI reflexion of the scope reveals cardia to be benign. IMPRESSION: Esophagitis, secondary to tobacco chew, gastritis, status post biopsy. PLAN AND DISCUSSION: This patient is already on Protonix, Zantac, and Tums. I am going to keep him on Protonix in addition to Gaviscon Extra Strength 1 tablet a.m. and p.m. The patient was advised to absolutely stop chewing of the tobacco and awaiting H. pylori results. When the data is available, we may proceed with treatment. He is going to continue with the Xarelto for hypercoagulable state. He is going to continue with his Ventolin and supportive management, anticoagulation and antireflux measures and dietary management; all has been discussed with him. [place], [place] OPERATIVE NOTE NAME: EULOGIO HAHN UNIT #: [id number] ROOM: DOCTOR: CHARITY BUCKLEY MD BIRTHDATE: [birth year] CHARITY BUCKLEY MD CM:OPRECORD:OPERATIVE NOTE 0910 1405 LA BUCKLEY MD 06/17/17 1404 interface
[2017-06-17 08:09] VITALS: BP 109/60
[2017-06-17 09:03] VITALS: BP 99/49
[2017-06-17 09:17] VITALS: BP 99/51
[2017-06-17 09:33] VITALS: BP 99/51
== END ==
LOC: SDC 06-15 14:00
DX: K29.50 Unspecified chronic gastritis without bleeding (principal); K21.0 Gastro-esophageal reflux disease with esophagitis; J45.909 Unspecified asthma, uncomplicated; F17.200 Nicotine dependence, unspecified, uncomplicated; I10 Essential (primary) hypertension; F32.9 Major depressive disorder, single episode, unspecified; Z79.899 Other long term (current) drug therapy; Z86.718 Personal history of other venous thrombosis and embolism; F41.0 Panic disorder [episodic paroxysmal anxiety]

== ENCOUNTER 2017-06-20 16:53 | Emergency (ER) | payer OTHER ==
[~2017-06-20] VITALS: Wt 77.1 kg
[2017-06-20 16:56] VITALS: BP 119/62
[2017-06-20] MEDS ORDERED: MIRALAX119 GM PO (17:33)
== END 2017-06-20 17:56 | disposition home or self-care (01) ==
LOC: ED 16:53
DX: K59.00 Constipation, unspecified (principal); K21.9 Gastro-esophageal reflux disease without esophagitis; J45.901 Unspecified asthma with (acute) exacerbation

== ENCOUNTER 2017-07-07 09:09 | Emergency (ER) | payer OTHER ==
[~2017-07-07] VITALS: Ht 187.9 cm; Wt 77.1 kg
[~2017-07-07 09:09] MED LIST changes: +MIRALAX119 GM PO
[2017-07-07 09:18] VITALS: BP 114/50
[2017-07-07 09:29] LABS: BASO # 0.1 10*3/uL (0.0-0.1); EOS # 0.4 10*3/uL (0.0-0.4); EOS % 6.6 % (1.0-4.0); HEMATOCRIT 48.3 % (42.0-52.0); HEMOGLOBIN 15.5 g/dl (14.0-18.0); LYMPH # 1.8 10*3/uL (1.3-4.4); LYMPH % 29.4 % (27.0-41.0); MEAN CORPUSCULAR HGB CONC 32.1 g/dl (33.0-37.0); MEAN PLATELET VOLUME 9.5 fl (9.6-12.3); MONO # 0.5 10*3/uL (0.1-1.0); MONO % 7.8 % (3.0-9.0); NEUT # 3.4 10*3/uL (2.3-7.9); PLATELET COUNT AUTOMATED 231 10*3/uL (130-400); RED BLOOD COUNT 5.75 10*6/uL (4.50-5.90); RED CELL DISTRI WIDTH 14.2 % (0-14.5); WHITE BLOOD COUNT 6.2 10*3/uL (4.8-10.8)
[2017-07-07 09:37] LABS: ACT PARTIAL THROMBO TIME 29.6 SECONDS (20.8-31.5); INTERNATIONAL NORM RATIO 1.2 (2.0-3.5)
[2017-07-07 09:46] LABS: ALBUMIN 4.6 gm/dl (3.1-4.5); ALKALINE PHOSPHATASE 67 U/L (45-117); BUN 12 mg/dl (7-24); CHLORIDE 103 mmol/L (98-107); CREATININE 1.14 mg/dL (0.70-1.30); POTASSIUM 3.6 mmol/L (3.5-5.1); SGOT/AST 12 IU/L (3-35); SGPT/ALT 16 U/L (12-78); SODIUM 138 mmol/L (136-145); TOTAL PROTEIN 8.2 gm/dL (6.4-8.2)
[2017-07-07 09:49] LABS: TROPONIN I < 0.015 ng/ml (<0.045)
== END 2017-07-07 11:10 | disposition home or self-care (01) ==
LOC: ED 09:09
PROVIDERS: Emergency Medicine
DX: K29.00 Acute gastritis without bleeding (principal); R10.13 Epigastric pain; K21.9 Gastro-esophageal reflux disease without esophagitis; F17.200 Nicotine dependence, unspecified, uncomplicated; J45.909 Unspecified asthma, uncomplicated; D68.2 Hereditary deficiency of other clotting factors; Z86.718 Personal history of other venous thrombosis and embolism; Z79.899 Other long term (current) drug therapy

== ENCOUNTER 2017-08-09 00:47 | Emergency (ER) | payer OTHER ==
[~2017-08-09] VITALS: Ht 187.9 cm; Wt 77.1 kg
[2017-08-09 00:52] VITALS: BP 121/59
[2017-08-09] MEDS ORDERED: MEDROL DOSEPAK4 MG PO (01:02)
[2017-08-09] MEDS ORDERED: ROBAXIN500 M1 PO (01:02)
== END 2017-08-09 02:31 | disposition home or self-care (01) ==
LOC: ED 00:47
DX: M25.511 Pain in right shoulder (principal); F17.200 Nicotine dependence, unspecified, uncomplicated; K21.9 Gastro-esophageal reflux disease without esophagitis; D68.2 Hereditary deficiency of other clotting factors; J45.909 Unspecified asthma, uncomplicated; Z86.718 Personal history of other venous thrombosis and embolism; Z79.899 Other long term (current) drug therapy

== ENCOUNTER 2017-08-17 20:21 | Emergency (ER) | payer OTHER ==
[~2017-08-17] VITALS: Ht 187.9 cm; Wt 73.0 kg
[~2017-08-17 20:21] MED LIST changes: +MEDROL DOSEPAK4 MG PO; +ROBAXIN500 M1 PO
[2017-08-17 20:22] VITALS: BP 113/59
[2017-08-17 20:47] LABS: BASO # 0.1 10*3/uL (0.0-0.1); EOS # 0.3 10*3/uL (0.0-0.4); HEMATOCRIT 44.9 % (42.0-52.0); HEMOGLOBIN 14.4 g/dl (14.0-18.0); LYMPH # 2.7 10*3/uL (1.3-4.4); LYMPH % 37.5 % (27.0-41.0); MEAN CELL VOLUME 83.9 fl (80.0-94.0); MEAN CORPUSCULAR HGB 26.9 pg (27.0-31.0); MEAN CORPUSCULAR HGB CONC 32.1 g/dl (33.0-37.0); MEAN PLATELET VOLUME 9.5 fl (9.6-12.3); MONO # 0.3 10*3/uL (0.1-1.0); MONO % 3.6 % (3.0-9.0); NEUT # 3.9 10*3/uL (2.3-7.9); NEUT % 53.8 % (47.0-73.0); PLATELET COUNT AUTOMATED 255 10*3/uL (130-400); RED BLOOD COUNT 5.35 10*6/uL (4.50-5.90); RED CELL DISTRI WIDTH 13.3 % (0-14.5); WHITE BLOOD COUNT 7.2 10*3/uL (4.8-10.8)
[2017-08-17 20:58] LABS: ACT PARTIAL THROMBO TIME 27.4 SECONDS (20.8-31.5); INTERNATIONAL NORM RATIO 1.1 (2.0-3.5)
[2017-08-17 21:04] LABS: ALBUMIN 4.4 gm/dl (3.1-4.5); ALKALINE PHOSPHATASE 58 U/L (45-117); BUN 19 mg/dl (7-24); CHLORIDE 108 mmol/L (98-107); CREATININE 1.44 mg/dL (0.70-1.30); POTASSIUM 3.9 mmol/L (3.5-5.1); SGOT/AST 14 IU/L (3-35); SGPT/ALT 15 U/L (12-78); SODIUM 142 mmol/L (136-145); TOTAL PROTEIN 7.3 gm/dL (6.4-8.2)
[2017-08-17 21:07] LABS: TROPONIN I < 0.015 ng/ml (<0.045)
== END 2017-08-17 21:43 | disposition home or self-care (01) ==
LOC: ED 20:21
PROVIDERS: Student in an Organized Health Care Education/Training Program
DX: F41.9 Anxiety disorder, unspecified (principal); K21.9 Gastro-esophageal reflux disease without esophagitis; J45.901 Unspecified asthma with (acute) exacerbation; Z79.899 Other long term (current) drug therapy

== ENCOUNTER 2017-09-08 19:12 | Emergency (ER) | payer OTHER ==
[~2017-09-08] VITALS: Ht 187.9 cm; Wt 74.4 kg
[2017-09-08 19:41] LABS: BASO # 0.1 10*3/uL (0.0-0.1); BASO % 1.6 % (0.0-1.0); EOS # 0.5 10*3/uL (0.0-0.4); EOS % 8.3 % (1.0-4.0); HEMOGLOBIN 13.8 g/dl (14.0-18.0); LYMPH # 2.7 10*3/uL (1.3-4.4); LYMPH % 48.8 % (27.0-41.0); MEAN CELL VOLUME 82.2 fl (80.0-94.0); MEAN CORPUSCULAR HGB CONC 32.9 g/dl (33.0-37.0); MEAN PLATELET VOLUME 10.1 fl (9.6-12.3); MONO # 0.3 10*3/uL (0.1-1.0); MONO % 4.9 % (3.0-9.0); NEUT % 36.4 % (47.0-73.0); PLATELET COUNT AUTOMATED 236 10*3/uL (130-400); RED BLOOD COUNT 5.11 10*6/uL (4.50-5.90); RED CELL DISTRI WIDTH 13.2 % (0-14.5); WHITE BLOOD COUNT 5.5 10*3/uL (4.8-10.8)
[2017-09-08 20:21] LABS: ACT PARTIAL THROMBO TIME 27.4 SECONDS (20.8-31.5); INTERNATIONAL NORM RATIO 1.1 (2.0-3.5)
[2017-09-08 20:28] LABS: ALBUMIN 4.3 gm/dl (3.1-4.5); ALKALINE PHOSPHATASE 66 U/L (45-117); BUN 15 mg/dl (7-24); CHLORIDE 106 mmol/L (98-107); CREATININE 1.09 mg/dL (0.70-1.30); POTASSIUM 4.1 mmol/L (3.5-5.1); SGOT/AST 10 IU/L (3-35); SGPT/ALT 13 U/L (12-78); SODIUM 142 mmol/L (136-145)
[2017-09-08 20:29] LABS: TROPONIN I < 0.015 ng/ml (<0.045)
[2017-09-08 21:16] VITALS: BP 109/52
== END 2017-09-08 21:43 | disposition home or self-care (01) ==
LOC: ED 19:12
PROVIDERS: Student in an Organized Health Care Education/Training Program
DX: R07.89 Other chest pain (principal); J45.909 Unspecified asthma, uncomplicated; K21.9 Gastro-esophageal reflux disease without esophagitis; F17.200 Nicotine dependence, unspecified, uncomplicated; Z79.899 Other long term (current) drug therapy; Z86.718 Personal history of other venous thrombosis and embolism

== ENCOUNTER 2017-09-22 23:34 | Emergency (ER) | payer OTHER ==
[~2017-09-22] VITALS: Ht 187.9 cm; Wt 73.0 kg
[2017-09-23 00:39] LABS: BASO # 0.1 10*3/uL (0.0-0.1); BASO % 0.8 % (0.0-1.0); EOS # 0.2 10*3/uL (0.0-0.4); EOS % 2.9 % (1.0-4.0); HEMOGLOBIN 14.3 g/dl (14.0-18.0); MEAN CELL VOLUME 83.8 fl (80.0-94.0); MEAN CORPUSCULAR HGB 26.6 pg (27.0-31.0); MEAN CORPUSCULAR HGB CONC 31.8 g/dl (33.0-37.0); MEAN PLATELET VOLUME 9.8 fl (9.6-12.3); MONO # 0.3 10*3/uL (0.1-1.0); MONO % 4.1 % (3.0-9.0); NEUT # 5.4 10*3/uL (2.3-7.9); NEUT % 67.1 % (47.0-73.0); PLATELET COUNT AUTOMATED 238 10*3/uL (130-400); RED BLOOD COUNT 5.37 10*6/uL (4.50-5.90); RED CELL DISTRI WIDTH 13.3 % (0-14.5)
[2017-09-23 00:46] LABS: BILIRUBIN NEGATIVE (NEGATIVE); BLOOD NEGATIVE (NEGATIVE); CLARITY CLEAR (CLEAR); COLOR YELLOW (YELLOW); GLUCOSE NEGATIVE (NEGATIVE); KETONE TRACE (NEGATIVE); LEUKO ESTERASE NEGATIVE (NEGATIVE); NITRITE NEGATIVE (NEGATIVE); SPECIFIC GRAVITY 1.015 (1.005-1.030)
[2017-09-23 00:54] LABS: ALBUMIN 4.3 gm/dl (3.1-4.5); ALKALINE PHOSPHATASE 59 U/L (45-117); BUN 13 mg/dl (7-24); CHLORIDE 109 mmol/L (98-107); LIPASE 111 U/L (73-393); POTASSIUM 3.3 mmol/L (3.5-5.1); SGOT/AST 12 IU/L (3-35); SGPT/ALT 15 U/L (12-78); SODIUM 142 mmol/L (136-145); TOTAL PROTEIN 7.3 gm/dL (6.4-8.2)
[2017-09-23 00:57] LABS: RBC 0-2 rbc/hpf (0-2)
[2017-09-23 02:24] VITALS: BP 115/68
== END 2017-09-23 02:42 | disposition home or self-care (01) ==
LOC: ED 23:34
PROVIDERS: Nurse Practitioner Family
DX: K29.00 Acute gastritis without bleeding (principal); K21.9 Gastro-esophageal reflux disease without esophagitis; Z79.899 Other long term (current) drug therapy

== ENCOUNTER 2018-03-17 12:50 | Emergency (ER) | payer SELFPAY ==
[~2018-03-17] VITALS: Ht 187.9 cm; Wt 77.1 kg
--- NOTE | ~2018-03-17 | EKG ---
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
[2018-03-17 13:14] LABS: BASO # 0.1 10*3/uL (0.0-0.1); BASO % 1.1 % (0.0-1.0); EOS # 0.4 10*3/uL (0.0-0.4); EOS % 7.5 % (1.0-4.0); HEMATOCRIT 47.1 % (42.0-52.0); HEMOGLOBIN 15.5 g/dl (14.0-18.0); LYMPH # 2.4 10*3/uL (1.3-4.4); LYMPH % 45.8 % (27.0-41.0); MEAN CELL VOLUME 81.9 fl (80.0-94.0); MEAN CORPUSCULAR HGB CONC 32.9 g/dl (33.0-37.0); MEAN PLATELET VOLUME 9.5 fl (9.6-12.3); MONO # 0.2 10*3/uL (0.1-1.0); MONO % 3.9 % (3.0-9.0); NEUT # 2.2 10*3/uL (2.3-7.9); NEUT % 41.5 % (47.0-73.0); PLATELET COUNT AUTOMATED 231 10*3/uL (130-400); RED BLOOD COUNT 5.75 10*6/uL (4.50-5.90); WHITE BLOOD COUNT 5.3 10*3/uL (4.8-10.8)
[2018-03-17 13:34] LABS: ALBUMIN 4.3 gm/dl (3.1-4.5); ALKALINE PHOSPHATASE 60 U/L (45-117); BUN 12 mg/dl (7-24); CHLORIDE 106 mmol/L (98-107); CREATININE 1.08 mg/dL (0.70-1.30); LIPASE 141 U/L (73-393); POTASSIUM 3.7 mmol/L (3.5-5.1); SGOT/AST 11 IU/L (3-35); SGPT/ALT 21 U/L (12-78); SODIUM 139 mmol/L (136-145); TOTAL PROTEIN 7.7 gm/dL (6.4-8.2)
[2018-03-17 13:37] VITALS: BP 121/68
[2018-03-17 13:39] LABS: TROPONIN I < 0.015 ng/ml (<0.045)
[2018-03-17 13:40] LABS: ACT PARTIAL THROMBO TIME 22.9 SECONDS (20.8-31.5); INTERNATIONAL NORM RATIO 1.1 (2.0-3.5)
[2018-03-17] MEDS ORDERED: PEPCID20 MG PO (14:22)
== END 2018-03-17 14:49 | disposition home or self-care (01) ==
LOC: ED 12:50
PROVIDERS: Emergency Medicine
DX: K21.9 Gastro-esophageal reflux disease without esophagitis (principal); J45.909 Unspecified asthma, uncomplicated

== ENCOUNTER 2018-10-06 13:52 | Emergency (ER) | payer OTHER ==
[~2018-10-06] VITALS: Ht 187.9 cm; Wt 77.1 kg
[~2018-10-06 13:52] MED LIST changes: +MUCINEX1200 M1 PO; +PREDNISONE50 MG PO; +PROAIR HFA8.5 GM INH; +PROTONIX40 MG PO; +ZYRTEC10 MG PO
[2018-10-06 13:56] VITALS: BP 123/60
[2018-10-06] MEDS ORDERED: PERCOCET 5-3251 EACH PO (14:27)
== END 2018-10-06 14:47 | disposition home or self-care (01) ==
LOC: ED 13:52
DX: R51 Headache (principal); M25.512 Pain in left shoulder; J45.909 Unspecified asthma, uncomplicated; K21.9 Gastro-esophageal reflux disease without esophagitis; F17.220 Nicotine dependence, chewing tobacco, uncomplicated; Z88.6 Allergy status to analgesic agent; Z79.899 Other long term (current) drug therapy; Z86.73 Personal history of transient ischemic attack (TIA), and cerebral infarction without residual deficits; V49.49XD Driver injured in collision with other motor vehicles in traffic accident, subsequent encounter

== ENCOUNTER 2018-10-13 10:58 | Emergency (ER) | payer OTHER ==
[~2018-10-13 10:58] MED LIST changes: +PERCOCET 5-3251 EACH PO
[2018-10-13 11:01] VITALS: BP 132/55
== END 2018-10-13 12:07 | disposition home or self-care (01) ==
LOC: ED 10:58
DX: S01.81XD Laceration without foreign body of other part of head, subsequent encounter (principal); S01.112D Laceration without foreign body of left eyelid and periocular area, subsequent encounter; F17.220 Nicotine dependence, chewing tobacco, uncomplicated; Z88.6 Allergy status to analgesic agent; Z88.8 Allergy status to other drugs, medicaments and biological substances; Z79.899 Other long term (current) drug therapy; X58.XXXD Exposure to other specified factors, subsequent encounter

== ENCOUNTER 2018-11-08 21:42 | Emergency (ER) | payer OTHER ==
[~2018-11-08] VITALS: Ht 187.9 cm; Wt 77.6 kg
[2018-11-08 21:43] VITALS: BP 125/71
== END 2018-11-08 22:55 | disposition home or self-care (01) ==
LOC: ED 21:42
DX: R07.81 Pleurodynia (principal); J45.909 Unspecified asthma, uncomplicated; K21.9 Gastro-esophageal reflux disease without esophagitis; F17.220 Nicotine dependence, chewing tobacco, uncomplicated; Z88.6 Allergy status to analgesic agent; Z88.8 Allergy status to other drugs, medicaments and biological substances; Z79.899 Other long term (current) drug therapy; X50.3XXA Overexertion from repetitive movements, initial encounter; Y93.11 Activity, swimming; Y92.098 Other place in other non-institutional residence as the place of occurrence of the external cause; Y99.8 Other external cause status

== ENCOUNTER 2018-12-03 19:39 | Emergency (ER) | payer OTHER ==
[~2018-12-03] VITALS: Ht 187.9 cm; Wt 80.7 kg
[2018-12-03 19:42] VITALS: BP 117/59
[2018-12-03] MEDS ORDERED: PANTOPRAZOLE SO40 MG PO (19:47)
[2018-12-03] MEDS ORDERED: LORATADINE-D 11 EACH PO (19:48)
[2018-12-03] MEDS ORDERED: PROAIR HFA8.5 GM INH (19:48)
[2018-12-03 20:18] LABS: BASO # 0.1 10*3/uL (0.0-0.1); BASO % 0.8 % (0.0-1.0); EOS # 0.4 10*3/uL (0.0-0.4); EOS % 7.3 % (1.0-4.0); HEMATOCRIT 48.6 % (42.0-52.0); HEMOGLOBIN 15.5 g/dl (14.0-18.0); LYMPH # 2.5 10*3/uL (1.3-4.4); LYMPH % 41.7 % (27.0-41.0); MEAN CELL VOLUME 85.4 fl (80.0-94.0); MEAN CORPUSCULAR HGB 27.2 pg (27.0-31.0); MEAN CORPUSCULAR HGB CONC 31.9 g/dl (33.0-37.0); MEAN PLATELET VOLUME 9.7 fl (9.6-12.3); MONO # 0.3 10*3/uL (0.1-1.0); MONO % 4.2 % (3.0-9.0); NEUT # 2.7 10*3/uL (2.3-7.9); NEUT % 45.8 % (47.0-73.0); PLATELET COUNT AUTOMATED 236 10*3/uL (130-400); RED BLOOD COUNT 5.69 10*6/uL (4.50-5.90); RED CELL DISTRI WIDTH 13.6 % (0-14.5); WHITE BLOOD COUNT 5.9 10*3/uL (4.8-10.8)
[2018-12-03 20:31] LABS: INTERNATIONAL NORM RATIO 1.1 (2.0-3.5)
[2018-12-03 20:33] LABS: ALBUMIN 4.2 gm/dl (3.1-4.5); ALKALINE PHOSPHATASE 70 U/L (45-117); BUN 13 mg/dl (7-24); CHLORIDE 106 mmol/L (98-107); CREATININE 1.31 mg/dL (0.70-1.30); POTASSIUM 3.9 mmol/L (3.5-5.1); SGOT/AST 9 IU/L (3-35); SGPT/ALT 20 U/L (12-78); SODIUM 138 mmol/L (136-145); TOTAL PROTEIN 7.5 gm/dL (6.4-8.2)
== END 2018-12-03 21:41 | disposition home or self-care (01) ==
LOC: ED 19:39
PROVIDERS: Nurse Practitioner Family
DX: G43.909 Migraine, unspecified, not intractable, without status migrainosus (principal); R11.2 Nausea with vomiting, unspecified; J45.909 Unspecified asthma, uncomplicated; F17.220 Nicotine dependence, chewing tobacco, uncomplicated; Z86.718 Personal history of other venous thrombosis and embolism; Z88.6 Allergy status to analgesic agent; Z79.899 Other long term (current) drug therapy

== ENCOUNTER 2018-12-26 14:06 | Emergency (ER) | payer OTHER ==
[~2018-12-26] VITALS: Ht 187.9 cm; Wt 77.6 kg
--- NOTE | ~2018-12-26 | EKG ---
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
--- NOTE | ~2018-12-26 | EKG ---
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
[~2018-12-26 14:06] MED LIST changes: +LORATADINE-D 11 EACH PO
[2018-12-26 14:21] LABS: BASO # 0.1 10*3/uL (0.0-0.1); BASO % 1.2 % (0.0-1.0); EOS # 0.3 10*3/uL (0.0-0.4); EOS % 6.7 % (1.0-4.0); HEMATOCRIT 44.1 % (42.0-52.0); HEMOGLOBIN 14.1 g/dl (14.0-18.0); LYMPH # 2.2 10*3/uL (1.3-4.4); LYMPH % 44.3 % (27.0-41.0); MEAN CELL VOLUME 85.3 fl (80.0-94.0); MEAN CORPUSCULAR HGB 27.3 pg (27.0-31.0); MEAN PLATELET VOLUME 9.2 fl (9.6-12.3); MONO # 0.3 10*3/uL (0.1-1.0); MONO % 4.9 % (3.0-9.0); NEUT # 2.2 10*3/uL (2.3-7.9); NEUT % 42.7 % (47.0-73.0); PLATELET COUNT AUTOMATED 270 10*3/uL (130-400); RED BLOOD COUNT 5.17 10*6/uL (4.50-5.90); RED CELL DISTRI WIDTH 13.3 % (0-14.5); WHITE BLOOD COUNT 5.1 10*3/uL (4.8-10.8)
[2018-12-26 14:37] LABS: ALBUMIN 4.2 gm/dl (3.1-4.5); ALKALINE PHOSPHATASE 71 U/L (45-117); BUN 12 mg/dl (7-24); CHLORIDE 109 mmol/L (98-107); CREATININE 1.13 mg/dL (0.70-1.30); POTASSIUM 3.6 mmol/L (3.5-5.1); SGOT/AST 9 IU/L (3-35); SGPT/ALT 14 U/L (12-78); SODIUM 141 mmol/L (136-145); TOTAL PROTEIN 7.8 gm/dL (6.4-8.2)
[2018-12-26 14:38] LABS: TROPONIN I < 0.015 ng/ml (<0.045)
[2018-12-26 16:58] VITALS: BP 135/91
== END 2018-12-26 17:50 | disposition home or self-care (01) ==
LOC: ED 14:06
PROVIDERS: Emergency Medicine
DX: R07.9 Chest pain, unspecified (principal); R42 Dizziness and giddiness; F17.220 Nicotine dependence, chewing tobacco, uncomplicated; Z88.6 Allergy status to analgesic agent; Z88.8 Allergy status to other drugs, medicaments and biological substances; Z79.899 Other long term (current) drug therapy

== ENCOUNTER 2019-03-24 02:05 | Emergency (ER) | payer OTHER ==
[~2019-03-24] VITALS: Ht 187.9 cm; Wt 77.6 kg
[2019-03-24 02:06] VITALS: BP 125/69
[2019-03-24] MEDS ORDERED: PENICILLIN VK500 MG PO (02:33)
== END 2019-03-24 03:12 | disposition home or self-care (01) ==
LOC: ED 02:05
DX: K08.89 Other specified disorders of teeth and supporting structures (principal); J45.909 Unspecified asthma, uncomplicated; K21.9 Gastro-esophageal reflux disease without esophagitis; I10 Essential (primary) hypertension; Z88.6 Allergy status to analgesic agent; Z88.8 Allergy status to other drugs, medicaments and biological substances; Z79.899 Other long term (current) drug therapy; Z86.718 Personal history of other venous thrombosis and embolism; Z87.891 Personal history of nicotine dependence

== ENCOUNTER 2019-04-13 14:19 | Emergency (ER) | payer SELFPAY ==
[~2019-04-13] VITALS: Ht 187.9 cm; Wt 81.6 kg
[2019-04-13 14:21] VITALS: BP 126/80
[2019-04-13] MEDS ORDERED: PENICILLIN-VK500 M1 PO (14:45)
== END 2019-04-13 14:59 | disposition home or self-care (01) ==
LOC: ED 14:19
DX: K08.89 Other specified disorders of teeth and supporting structures (principal); K21.9 Gastro-esophageal reflux disease without esophagitis; J45.909 Unspecified asthma, uncomplicated; F17.220 Nicotine dependence, chewing tobacco, uncomplicated; Z79.01 Long term (current) use of anticoagulants; Z86.718 Personal history of other venous thrombosis and embolism; Z88.6 Allergy status to analgesic agent; Z79.899 Other long term (current) drug therapy

== ENCOUNTER 2019-08-29 13:21 | Emergency (ER) | payer OTHER ==
[~2019-08-29] VITALS: Ht 187.9 cm; Wt 81.6 kg
[~2019-08-29 13:21] MED LIST changes: +PENICILLIN-VK500 M1 PO
[2019-08-29 13:27] VITALS: BP 128/69
[2019-08-29] MEDS ORDERED: PENICILLIN VK500 MG PO (14:16)
[2019-08-30] MEDS ORDERED: PERCOCET 5-3251 EACH PO (04:47)
== END 2019-08-29 14:25 | disposition home or self-care (01) ==
LOC: ED 13:21
DX: S02.5XXA Fracture of tooth (traumatic), initial encounter for closed fracture (principal); K04.7 Periapical abscess without sinus; K21.9 Gastro-esophageal reflux disease without esophagitis; J45.909 Unspecified asthma, uncomplicated; F17.200 Nicotine dependence, unspecified, uncomplicated; Z88.6 Allergy status to analgesic agent; Z88.8 Allergy status to other drugs, medicaments and biological substances; Z79.2 Long term (current) use of antibiotics; Z79.899 Other long term (current) drug therapy; Z86.718 Personal history of other venous thrombosis and embolism; X58.XXXA Exposure to other specified factors, initial encounter; Y93.89 Activity, other specified; Y92.89 Other specified places as the place of occurrence of the external cause; Y99.8 Other external cause status

== ENCOUNTER 2019-08-30 04:14 | Emergency (ER) | payer OTHER ==
[~2019-08-30] VITALS: Ht 187.9 cm; Wt 77.6 kg
[2019-08-30 04:22] VITALS: BP 151/84
[2019-08-30] MEDS ORDERED: PERCOCET 5-3251 EACH PO (04:47)
== END 2019-08-30 05:10 | disposition home or self-care (01) ==
LOC: ED 04:14
DX: K04.7 Periapical abscess without sinus (principal); K03.81 Cracked tooth; K21.9 Gastro-esophageal reflux disease without esophagitis; J45.909 Unspecified asthma, uncomplicated; Z86.718 Personal history of other venous thrombosis and embolism; Z88.6 Allergy status to analgesic agent; Z88.8 Allergy status to other drugs, medicaments and biological substances; Z88.0 Allergy status to penicillin; Z79.899 Other long term (current) drug therapy; X58.XXXA Exposure to other specified factors, initial encounter; Y93.89 Activity, other specified; Y92.89 Other specified places as the place of occurrence of the external cause; Y99.8 Other external cause status

== ENCOUNTER 2019-09-06 05:25 | Emergency (ER) | payer OTHER ==
[~2019-09-06] VITALS: Ht 187.9 cm; Wt 81.6 kg
[2019-09-06 05:34] VITALS: BP 122/76
== END 2019-09-06 06:08 | disposition home or self-care (01) ==
LOC: ED 05:25
DX: K08.89 Other specified disorders of teeth and supporting structures (principal); F41.9 Anxiety disorder, unspecified; K21.9 Gastro-esophageal reflux disease without esophagitis; J45.909 Unspecified asthma, uncomplicated; Z98.818 Other dental procedure status; Z88.5 Allergy status to narcotic agent; Z79.899 Other long term (current) drug therapy; Z79.2 Long term (current) use of antibiotics

== ENCOUNTER 2019-09-19 22:24 | Emergency (ER) | payer OTHER ==
[~2019-09-19] VITALS: Ht 187.9 cm; Wt 77.1 kg
[2019-09-19 22:30] VITALS: BP 134/90
== END 2019-09-20 00:48 | disposition home or self-care (01) ==
LOC: ED 22:24
DX: S50.11XA Contusion of right forearm, initial encounter (principal); K21.9 Gastro-esophageal reflux disease without esophagitis; J45.909 Unspecified asthma, uncomplicated; F17.220 Nicotine dependence, chewing tobacco, uncomplicated; Z86.718 Personal history of other venous thrombosis and embolism; Z88.6 Allergy status to analgesic agent; Z79.899 Other long term (current) drug therapy; W22.8XXA Striking against or struck by other objects, initial encounter; Y93.68 Activity, volleyball (beach) (court); Y92.89 Other specified places as the place of occurrence of the external cause; Y99.8 Other external cause status

== ENCOUNTER 2019-09-27 20:04 | Emergency (ER) | payer OTHER ==
[~2019-09-27] VITALS: Ht 264.1 cm; Wt 81.6 kg
[2019-09-27 20:11] VITALS: BP 120/100
[2019-09-27 21:03] LABS: BASO % 0.9 % (0.0-1.0); EOS # 0.2 10*3/uL (0.0-0.4); EOS % 5.4 % (1.0-4.0); HEMATOCRIT 43.3 % (42.0-52.0); LYMPH # 1.7 10*3/uL (1.3-4.4); LYMPH % 38.2 % (27.0-41.0); MEAN CELL VOLUME 82.3 fl (80.0-94.0); MEAN CORPUSCULAR HGB CONC 32.8 g/dl (33.0-37.0); MEAN PLATELET VOLUME 9.8 fl (9.6-12.3); MONO # 0.2 10*3/uL (0.1-1.0); MONO % 4.2 % (3.0-9.0); NEUT # 2.3 10*3/uL (2.3-7.9); NEUT % 51.1 % (47.0-73.0); PLATELET COUNT AUTOMATED 241 10*3/uL (130-400); RED BLOOD COUNT 5.26 10*6/uL (4.50-5.90); RED CELL DISTRI WIDTH 12.8 % (0-14.5); WHITE BLOOD COUNT 4.5 10*3/uL (4.8-10.8)
[2019-09-27 21:13] LABS: INTERNATIONAL NORM RATIO 1.1 (2.0-3.5)
[2019-09-27 21:20] LABS: ALBUMIN 3.9 gm/dl (3.1-4.5); ALKALINE PHOSPHATASE 85 U/L (45-117); BUN 17 mg/dl (7-24); CHLORIDE 108 mmol/L (98-107); CREATININE 1.22 mg/dL (0.70-1.30); LIPASE 127 U/L (73-393); POTASSIUM 3.8 mmol/L (3.5-5.1); SGOT/AST 17 IU/L (3-35); SGPT/ALT 34 U/L (12-78); SODIUM 141 mmol/L (136-145); TOTAL PROTEIN 7.4 gm/dL (6.4-8.2)
[2019-09-27 21:22] LABS: TROPONIN I < 0.015 ng/ml (<0.045)
[2019-09-27] MEDS ORDERED: PROTONIX40 M1 IV (22:39)
[2019-09-27] MEDS ORDERED: CARAFATE1 GM/10 ML PO (22:39)
== END 2019-09-27 22:50 | disposition home or self-care (01) ==
LOC: ED 20:04
PROVIDERS: Emergency Medicine
DX: K21.9 Gastro-esophageal reflux disease without esophagitis (principal); F41.9 Anxiety disorder, unspecified; J45.909 Unspecified asthma, uncomplicated; Z88.5 Allergy status to narcotic agent; Z88.8 Allergy status to other drugs, medicaments and biological substances; Z79.2 Long term (current) use of antibiotics; Z79.899 Other long term (current) drug therapy

== ENCOUNTER 2019-09-30 17:58 | Emergency (ER) | payer OTHER ==
[~2019-09-30] VITALS: Ht 187.9 cm; Wt 77.1 kg
[~2019-09-30 17:58] MED LIST changes: +CARAFATE1 GM/10 ML PO; +PROTONIX40 M1 IV
[2019-09-30 20:20] VITALS: BP 110/68
== END 2019-09-30 20:36 | disposition home or self-care (01) ==
LOC: ED 17:58
DX: S93.401A Sprain of unspecified ligament of right ankle, initial encounter (principal); Z88.8 Allergy status to other drugs, medicaments and biological substances; Z88.5 Allergy status to narcotic agent; Z79.899 Other long term (current) drug therapy; X58.XXXA Exposure to other specified factors, initial encounter; Y93.67 Activity, basketball; Y92.89 Other specified places as the place of occurrence of the external cause; Y99.8 Other external cause status

== ENCOUNTER 2019-12-11 17:21 | Emergency (ER) | payer OTHER ==
[~2019-12-11] VITALS: Wt 77.6 kg
[2019-12-11 17:25] VITALS: BP 128/69
[2019-12-11 20:32] LABS: BASO # 0.1 10*3/uL (0.0-0.1); BASO % 0.9 % (0.0-1.0); EOS # 0.5 10*3/uL (0.0-0.4); HEMATOCRIT 47.3 % (42.0-52.0); LYMPH # 2.7 10*3/uL (1.3-4.4); LYMPH % 50.4 % (27.0-41.0); MEAN CELL VOLUME 83.6 fl (80.0-94.0); MEAN CORPUSCULAR HGB 26.1 pg (27.0-31.0); MEAN CORPUSCULAR HGB CONC 31.3 g/dl (33.0-37.0); MEAN PLATELET VOLUME 9.2 fl (9.6-12.3); MONO # 0.2 10*3/uL (0.1-1.0); MONO % 4.2 % (3.0-9.0); NEUT # 1.8 10*3/uL (2.3-7.9); NEUT % 34.3 % (47.0-73.0); PLATELET COUNT AUTOMATED 234 10*3/uL (130-400); RED BLOOD COUNT 5.66 10*6/uL (4.50-5.90); RED CELL DISTRI WIDTH 13.1 % (0-14.5); WHITE BLOOD COUNT 5.3 10*3/uL (4.8-10.8)
[2019-12-11 20:46] LABS: ALKALINE PHOSPHATASE 73 U/L (45-117); BUN 10 mg/dl (7-24); CHLORIDE 108 mmol/L (98-107); CREATININE 1.11 mg/dL (0.70-1.30); POTASSIUM 3.8 mmol/L (3.5-5.1); SGOT/AST 21 IU/L (3-35); SGPT/ALT 62 U/L (12-78); SODIUM 140 mmol/L (136-145); TOTAL PROTEIN 7.8 gm/dL (6.4-8.2)
== END 2019-12-11 21:45 | disposition home or self-care (01) ==
LOC: ED 17:21
PROVIDERS: Nurse Practitioner Family
DX: G43.909 Migraine, unspecified, not intractable, without status migrainosus (principal); F41.9 Anxiety disorder, unspecified; K21.9 Gastro-esophageal reflux disease without esophagitis; J45.909 Unspecified asthma, uncomplicated; F32.9 Major depressive disorder, single episode, unspecified; Z88.5 Allergy status to narcotic agent; Z79.899 Other long term (current) drug therapy

== ENCOUNTER 2019-12-24 23:11 | Emergency (ER) | payer OTHER ==
[~2019-12-24] VITALS: Ht 187.9 cm; Wt 77.1 kg
[2019-12-24 23:19] VITALS: BP 129/77
[2019-12-25] MEDS ORDERED: XANAX0.25 MG PO (02:18)
== END 2019-12-25 03:00 | disposition home or self-care (01) ==
LOC: ED 23:11
DX: R00.2 Palpitations (principal); F41.9 Anxiety disorder, unspecified; K21.9 Gastro-esophageal reflux disease without esophagitis; J45.909 Unspecified asthma, uncomplicated; F32.9 Major depressive disorder, single episode, unspecified; Z88.5 Allergy status to narcotic agent; Z79.899 Other long term (current) drug therapy

== ENCOUNTER 2020-01-19 01:05 | Emergency (ER) | payer OTHER ==
[~2020-01-19] VITALS: Ht 187.9 cm; Wt 77.1 kg
[~2020-01-19 01:05] MED LIST changes: +XANAX0.25 MG PO
[2020-01-19 01:12] VITALS: BP 108/51
== END 2020-01-19 03:28 | disposition home or self-care (01) ==
LOC: ED 01:05
DX: S50.11XA Contusion of right forearm, initial encounter (principal); K21.9 Gastro-esophageal reflux disease without esophagitis; G43.909 Migraine, unspecified, not intractable, without status migrainosus; Z88.6 Allergy status to analgesic agent; Z79.899 Other long term (current) drug therapy; W21.89XA Striking against or struck by other sports equipment, initial encounter; Y93.68 Activity, volleyball (beach) (court); Y92.89 Other specified places as the place of occurrence of the external cause; Y99.8 Other external cause status

== ENCOUNTER 2020-03-26 18:20 | Emergency (ER) | payer OTHER ==
[~2020-03-26] VITALS: Ht 188 cm; Wt 77.1 kg
[2020-03-26 18:26] VITALS: BP 129/84
== END 2020-03-26 19:00 | disposition left against medical advice (07) ==
LOC: ED 18:20
DX: M54.5 Low back pain (principal); Z53.21 Procedure and treatment not carried out due to patient leaving prior to being seen by health care provider; X50.0XXA Overexertion from strenuous movement or load, initial encounter; Y93.89 Activity, other specified; Y92.89 Other specified places as the place of occurrence of the external cause; Y99.8 Other external cause status

== ENCOUNTER 2021-02-04 03:03 | Emergency (ER) | payer OTHER ==
[~2021-02-04] VITALS: Ht 187.9 cm; Wt 83.9 kg
[2021-02-04 03:14] VITALS: BP 121/65
== END 2021-02-04 04:40 | disposition left against medical advice (07) ==
LOC: ED 03:03
DX: F41.9 Anxiety disorder, unspecified (principal); Z53.21 Procedure and treatment not carried out due to patient leaving prior to being seen by health care provider

== ENCOUNTER 2021-02-14 21:33 | Emergency (ER) | payer OTHER ==
[~2021-02-14] VITALS: Ht 187.9 cm; Wt 81.6 kg
[2021-02-14 21:50] VITALS: BP 148/79
[2021-02-14 22:27] LABS: BASO # 0.1 10*3/uL (0.0-0.1); BASO % 1.1 % (0.0-1.0); EOS # 0.6 10*3/uL (0.0-0.4); EOS % 8.9 % (1.0-4.0); HEMATOCRIT 48.2 % (42.0-52.0); LYMPH # 2.3 10*3/uL (1.3-4.4); LYMPH % 32.6 % (27.0-41.0); MEAN CELL VOLUME 85.2 fl (80.0-94.0); MEAN CORPUSCULAR HGB 26.5 pg (27.0-31.0); MEAN CORPUSCULAR HGB CONC 31.1 g/dl (33.0-37.0); MEAN PLATELET VOLUME 9.4 fl (9.6-12.3); MONO # 0.5 10*3/uL (0.1-1.0); MONO % 6.5 % (3.0-9.0); NEUT # 3.5 10*3/uL (2.3-7.9); NEUT % 50.6 % (47.0-73.0); PLATELET COUNT AUTOMATED 257 10*3/uL (130-400); RED BLOOD COUNT 5.66 10*6/uL (4.50-5.90); RED CELL DISTRI WIDTH 13.8 % (0-14.5)
[2021-02-14 22:46] LABS: ALBUMIN 3.9 gm/dl (3.1-4.5); ALKALINE PHOSPHATASE 64 U/L (45-117); BUN 12 mg/dl (7-24); CHLORIDE 106 mmol/L (98-107); CREATININE 1.13 mg/dL (0.70-1.30); POTASSIUM 3.8 mmol/L (3.5-5.1); SGOT/AST 6 IU/L (3-35); SGPT/ALT 16 U/L (12-78); SODIUM 141 mmol/L (136-145); TOTAL PROTEIN 7.2 gm/dL (6.4-8.2)
== END 2021-02-14 23:41 | disposition home or self-care (01) ==
LOC: ED 21:33
PROVIDERS: Physician Assistant
DX: F41.9 Anxiety disorder, unspecified (principal); Z88.6 Allergy status to analgesic agent; Z79.899 Other long term (current) drug therapy; F17.220 Nicotine dependence, chewing tobacco, uncomplicated

== ENCOUNTER → 2021-04-18 | Outpatient (CLI) | payer OTHER | END | disposition home or self-care (01) | LOC: COVID19 17:15 | PROVIDERS: ATTEND Podiatrist Foot & Ankle Surgery | DX: Z11.52 Encounter for screening for COVID-19 (principal) ==

== ENCOUNTER 2022-04-16 19:11 | Emergency (ER) | payer OTHER ==
[~2022-04-16] VITALS: Ht 187.9 cm; Wt 86.2 kg
[2022-04-16 19:30] VITALS: BP 117/67
== END 2022-04-16 23:50 | disposition left against medical advice (07) ==
LOC: ED 19:11
DX: Z53.21 Procedure and treatment not carried out due to patient leaving prior to being seen by health care provider (principal)

== ENCOUNTER → 2022-04-16 | Outpatient (CLI) | payer OTHER | END | disposition home or self-care (01) | LOC: LAB 12:44 | PROVIDERS: ATTEND Internal Medicine | DX: J06.9 Acute upper respiratory infection, unspecified (principal) ==

== ENCOUNTER 2022-05-29 10:17 | Emergency (ER) | payer OTHER ==
[~2022-05-29] VITALS: Ht 187.9 cm; Wt 90.7 kg
[2022-05-29 10:24] VITALS: BP 121/82
== END 2022-05-29 12:49 | disposition home or self-care (01) ==
LOC: ED 10:17
DX: R20.2 Paresthesia of skin (principal); Z88.6 Allergy status to analgesic agent; Z79.899 Other long term (current) drug therapy

== ENCOUNTER 2023-03-26 13:39 | Emergency (ER) | payer OTHER ==
[~2023-03-26] VITALS: Ht 187.9 cm; Wt 95.3 kg
[2023-03-26 13:57] VITALS: BP 104/60
== END 2023-03-26 17:42 | disposition left against medical advice (07) ==
LOC: ED 13:39
DX: R51.9 Headache, unspecified (principal); J02.9 Acute pharyngitis, unspecified; M79.10 Myalgia, unspecified site; R50.9 Fever, unspecified; Z53.21 Procedure and treatment not carried out due to patient leaving prior to being seen by health care provider; Z88.6 Allergy status to analgesic agent

== ENCOUNTER 2023-03-27 23:50 | Emergency (ER) | payer OTHER ==
[~2023-03-27] VITALS: Ht 187.9 cm; Wt 95.3 kg
[2023-03-28 00:07] VITALS: BP 116/74
== END 2023-03-28 01:55 | disposition home or self-care (01) ==
LOC: ED 23:50
DX: U07.1 COVID-19 (principal); J45.909 Unspecified asthma, uncomplicated; F17.290 Nicotine dependence, other tobacco product, uncomplicated; Z88.6 Allergy status to analgesic agent; Z88.8 Allergy status to other drugs, medicaments and biological substances; Z79.899 Other long term (current) drug therapy; Z86.718 Personal history of other venous thrombosis and embolism

== ENCOUNTER 2023-05-19 15:11 | Emergency (ER) | payer OTHER ==
[~2023-05-19] VITALS: Ht 187.9 cm; Wt 94.8 kg
[2023-05-19 15:28] VITALS: BP 114/62
== END 2023-05-19 17:52 | disposition home or self-care (01) ==
LOC: ED 15:11
DX: M76.892 Other specified enthesopathies of left lower limb, excluding foot (principal); F41.9 Anxiety disorder, unspecified; K21.9 Gastro-esophageal reflux disease without esophagitis; J45.909 Unspecified asthma, uncomplicated; Z86.718 Personal history of other venous thrombosis and embolism; F32.A Depression, unspecified; F17.220 Nicotine dependence, chewing tobacco, uncomplicated; Z88.6 Allergy status to analgesic agent; Z98.890 Other specified postprocedural states

== ENCOUNTER 2023-12-21 18:06 | Emergency (ER) | payer SELFPAY ==
[~2023-12-21] VITALS: Ht 187.9 cm; Wt 93.0 kg
[2023-12-21 18:27] VITALS: BP 99/74
[2023-12-21] MEDS ORDERED: IOHEXOL 350 MG/ML 100 ML VIAL IV ONE (19:15)
[2023-12-21] MEDS ORDERED: SODIUM CHLORIDE 0.9% 100 ML BAG IV ONE (19:15)
[2023-12-21] MEDS ORDERED: RIVAROXABAN 20 MG TAB PO ONE ×2 (19:20→21:05)
[2023-12-21 19:24] LABS: BASO # 0.1 10*3/uL (0.0-0.1); BASO % 1.2 % (0.0-1.0); EOS # 0.8 10*3/uL (0.0-0.4); EOS % 12.2 % (1.0-4.0); HEMATOCRIT 48.7 % (42.0-52.0); LYMPH # 2.6 10*3/uL (1.3-4.4); LYMPH % 39.8 % (27.0-41.0); MEAN CELL VOLUME 85.6 fl (80.0-94.0); MEAN CORPUSCULAR HGB 27.4 pg (27.0-31.0); MEAN PLATELET VOLUME 9.7 fl (9.6-12.3); MONO # 0.2 10*3/uL (0.1-1.0); MONO % 2.5 % (3.0-9.0); NEUT # 2.8 10*3/uL (2.3-7.9); NEUT % 44.1 % (47.0-73.0); PLATELET COUNT AUTOMATED 266 10*3/uL (130-400); RED BLOOD COUNT 5.69 10*6/uL (4.50-5.90); WHITE BLOOD COUNT 6.5 10*3/uL (4.8-10.8)
[2023-12-21 19:36] LABS: ACT PARTIAL THROMBO TIME 28.6 SECONDS (20.0-32.1)
[2023-12-21 19:44] LABS: ALKALINE PHOSPHATASE 77 U/L (46-116); BUN 12 mg/dl (9-23); CHLORIDE 106 mmol/L (98-107); CPK 74 U/L (34-171); LIPASE 27 U/L (12-53); POTASSIUM 4.1 mmol/L (3.4-5.1); SGPT/ALT 7 U/L (5-49); TOTAL PROTEIN 7.6 gm/dL (6.0-8.0)
[2023-12-22] MEDS ORDERED: RIVAROXABAN 20 MG TAB PO SCH (10:00)
== END 2023-12-21 21:21 | disposition home or self-care (01) ==
LOC: ED 18:06
PROVIDERS: Emergency Medicine
DX: R07.89 Other chest pain (principal); M25.511 Pain in right shoulder; F41.9 Anxiety disorder, unspecified; K21.9 Gastro-esophageal reflux disease without esophagitis; J45.909 Unspecified asthma, uncomplicated; F32.A Depression, unspecified; F17.220 Nicotine dependence, chewing tobacco, uncomplicated; Z86.718 Personal history of other venous thrombosis and embolism; Z88.6 Allergy status to analgesic agent; Z98.890 Other specified postprocedural states

== ENCOUNTER 2023-12-27 15:45 | Emergency (ER) | payer OTHER ==
[~2023-12-27] VITALS: Ht 175.2 cm; Wt 83.9 kg
[2023-12-27 16:00] VITALS: BP 125/85
[2023-12-27 16:24] LABS: BASO # 0.1 10*3/uL (0.0-0.1); BASO % 1.2 % (0.0-1.0); EOS # 0.8 10*3/uL (0.0-0.4); EOS % 13.1 % (1.0-4.0); HEMATOCRIT 48.5 % (42.0-52.0); LYMPH # 2.3 10*3/uL (1.3-4.4); LYMPH % 39.1 % (27.0-41.0); MEAN CELL VOLUME 85.8 fl (80.0-94.0); MEAN CORPUSCULAR HGB CONC 32.6 g/dl (33.0-37.0); MEAN PLATELET VOLUME 9.6 fl (9.6-12.3); MONO # 0.2 10*3/uL (0.1-1.0); NEUT # 2.6 10*3/uL (2.3-7.9); NEUT % 43.4 % (47.0-73.0); PLATELET COUNT AUTOMATED 250 10*3/uL (130-400); RED BLOOD COUNT 5.65 10*6/uL (4.50-5.90); RED CELL DISTRI WIDTH 12.9 % (0-14.5); WHITE BLOOD COUNT 5.9 10*3/uL (4.8-10.8)
[2023-12-27 16:41] LABS: BUN 8 mg/dl (9-23); CHLORIDE 109 mmol/L (98-107); POTASSIUM 4.1 mmol/L (3.4-5.1)
[2023-12-28] MEDS ORDERED: MEDROL DOSEPAK4 MG PO (08:51)
== END 2023-12-27 17:13 | disposition home or self-care (01) ==
LOC: ED 15:45
PROVIDERS: Nurse Practitioner Family
DX: M79.601 Pain in right arm (principal); M54.2 Cervicalgia; F41.9 Anxiety disorder, unspecified; K21.9 Gastro-esophageal reflux disease without esophagitis; J45.909 Unspecified asthma, uncomplicated; Z86.718 Personal history of other venous thrombosis and embolism; F32.A Depression, unspecified; F17.220 Nicotine dependence, chewing tobacco, uncomplicated; Z88.6 Allergy status to analgesic agent; Z98.890 Other specified postprocedural states

== ENCOUNTER 2023-12-28 06:57 | Emergency (ER) | payer OTHER ==
[2023-12-28 06:58] VITALS: BP 127/82
[2023-12-28] MEDS ORDERED: Albuterol Sulf/Ipratropium 3 ML VIAL NEB ONE (07:05)
[2023-12-28] MEDS ORDERED: methylPREDNISolone sod succ 125 MG VIAL IV ONE (07:10)
[2023-12-28 07:29] LABS: BASO # 0.1 10*3/uL (0.0-0.1); BASO % 1.5 % (0.0-1.0); EOS # 1.2 10*3/uL (0.0-0.4); EOS % 14.7 % (1.0-4.0); HEMATOCRIT 47.8 % (42.0-52.0); LYMPH # 3.5 10*3/uL (1.3-4.4); LYMPH % 44.4 % (27.0-41.0); MEAN CELL VOLUME 84.3 fl (80.0-94.0); MEAN CORPUSCULAR HGB 27.9 pg (27.0-31.0); MEAN CORPUSCULAR HGB CONC 33.1 g/dl (33.0-37.0); MEAN PLATELET VOLUME 9.4 fl (9.6-12.3); MONO # 0.3 10*3/uL (0.1-1.0); MONO % 3.7 % (3.0-9.0); NEUT # 2.8 10*3/uL (2.3-7.9); NEUT % 35.6 % (47.0-73.0); PLATELET COUNT AUTOMATED 252 10*3/uL (130-400); RED BLOOD COUNT 5.67 10*6/uL (4.50-5.90); WHITE BLOOD COUNT 7.9 10*3/uL (4.8-10.8)
[2023-12-28 07:37] LABS: URINE AMPHETAMINES Negative (1000ng/ml); URINE BARBITURATES Negative (200ng/ml); URINE BENZODIAZEPINES Negative (200ng/ml); URINE CANNABINOIDS (THC) Negative (50ng/ml); URINE COCAINE Negative (300ng/ml); URINE METHADONE Negative (300ng/ml); URINE OPIATES Negative (300ng/ml); URINE PHENCYCLIDINE Negative (25ng/ml)
[2023-12-28 08:36] LABS: ALKALINE PHOSPHATASE 81 U/L (46-116); BUN 9 mg/dl (9-23); CHLORIDE 106 mmol/L (98-107); TOTAL PROTEIN 7.6 gm/dL (6.0-8.0)
[2023-12-28 08:42] LABS: ETHYL ALCOHOL < 3.0 mg/dl (<3); POTASSIUM 3.1 mmol/L (3.4-5.1); SGPT/ALT < 7 U/L (5-49)
[2023-12-28] MEDS ORDERED: MEDROL DOSEPAK4 MG PO (08:51)
[2023-12-28] MEDS ORDERED: POTASSIUM CHLORIDE 20 MEQ TAB PO ONE (08:55)
== END 2023-12-28 08:55 | disposition home or self-care (01) ==
LOC: ED 06:57
PROVIDERS: Internal Medicine
DX: J45.901 Unspecified asthma with (acute) exacerbation (principal); E87.6 Hypokalemia; F41.9 Anxiety disorder, unspecified; K21.9 Gastro-esophageal reflux disease without esophagitis; Z86.718 Personal history of other venous thrombosis and embolism; F32.A Depression, unspecified; F17.220 Nicotine dependence, chewing tobacco, uncomplicated; Z88.6 Allergy status to analgesic agent; Z98.890 Other specified postprocedural states; Z79.899 Other long term (current) drug therapy

== ENCOUNTER 2024-04-12 17:52 | Emergency (ER) | payer OTHER, MEDICAID ==
[~2024-04-12] VITALS: Ht 187.9 cm; Wt 88.0 kg
[2024-04-12 18:00] VITALS: BP 144/91
[2024-04-12] MEDS ORDERED: BUDESONIDE-FO10.2 G1 INH (18:01)
[2024-04-12] MEDS ORDERED: ALBUTEROL HFA 90 MCG (18:01)
[2024-04-12] MEDS ORDERED: CYCLOBENZAPRINE10 MG PO (18:02)
[2024-04-12] MEDS ORDERED: MELOXICAM15 MG PO (18:02)
[2024-04-12] MEDS ORDERED: hydrOXYzine pamoate 25 MG CAP PO ONE (18:10)
[2024-04-12 18:36] LABS: BASO # 0.1 10*3/uL (0.0-0.1); BASO % 1.1 % (0.0-1.0); EOS # 0.6 10*3/uL (0.0-0.4); EOS % 9.5 % (1.0-4.0); HEMATOCRIT 42.7 % (42.0-52.0); MEAN CELL VOLUME 84.2 fl (80.0-94.0); MEAN CORPUSCULAR HGB 27.2 pg (27.0-31.0); MEAN CORPUSCULAR HGB CONC 32.3 g/dl (33.0-37.0); MEAN PLATELET VOLUME 9.4 fl (9.6-12.3); MONO # 0.3 10*3/uL (0.1-1.0); MONO % 3.9 % (3.0-9.0); NEUT # 2.9 10*3/uL (2.3-7.9); NEUT % 45.6 % (47.0-73.0); PLATELET COUNT AUTOMATED 253 10*3/uL (130-400); RED BLOOD COUNT 5.07 10*6/uL (4.50-5.90); RED CELL DISTRI WIDTH 13.4 % (0-14.5); WHITE BLOOD COUNT 6.4 10*3/uL (4.8-10.8)
[2024-04-12 18:54] LABS: BUN 14 mg/dl (9-23); CHLORIDE 107 mmol/L (98-107); POTASSIUM 3.6 mmol/L (3.4-5.1)
== END 2024-04-12 21:18 | disposition home or self-care (01) ==
LOC: ED 17:52
PROVIDERS: Physician Assistant Medical
DX: F41.9 Anxiety disorder, unspecified (principal); K21.9 Gastro-esophageal reflux disease without esophagitis; J45.909 Unspecified asthma, uncomplicated; Z88.6 Allergy status to analgesic agent; Z88.8 Allergy status to other drugs, medicaments and biological substances; Z79.899 Other long term (current) drug therapy; Z87.891 Personal history of nicotine dependence; Z86.718 Personal history of other venous thrombosis and embolism

== ENCOUNTER 2024-04-21 19:27 | Emergency (ER) | payer OTHER, MEDICAID ==
[~2024-04-21] VITALS: Ht 182.8 cm; Wt 90.7 kg
[~2024-04-21 19:27] MED LIST changes: +ALBUTEROL HFA 90 MCG; +BUDESONIDE-FO10.2 G1 INH; +MELOXICAM15 MG PO
[2024-04-21 19:40] VITALS: BP 107/67
[2024-04-21 20:36] LABS: BILIRUBIN Negative (Negative); BLOOD Negative (Negative); CLARITY Clear (Clear); COLOR Yellow (Yellow); GLUCOSE Negative (Negative); KETONE Trace (Negative); LEUKO ESTERASE Negative (Negative); NITRITE Negative (Negative); PH 5.5 (4.5-8.0)
[2024-04-21 20:48] LABS: BACTERIA 1+; MUCOUS 2+
[2024-04-21] MEDS ORDERED: Ketorolac Tromethamine 30 MG/ML VIAL IM ONE (22:15)
== END 2024-04-21 22:27 | disposition home or self-care (01) ==
LOC: ED 19:27
PROVIDERS: Internal Medicine
DX: K56.41 Fecal impaction (principal); R14.1 Gas pain; F41.9 Anxiety disorder, unspecified; K21.9 Gastro-esophageal reflux disease without esophagitis; J45.909 Unspecified asthma, uncomplicated; F32.A Depression, unspecified; F17.220 Nicotine dependence, chewing tobacco, uncomplicated; Z86.718 Personal history of other venous thrombosis and embolism; Z88.6 Allergy status to analgesic agent; Z98.890 Other specified postprocedural states

== ENCOUNTER 2024-05-02 20:59 | Emergency (ER) | payer OTHER, MEDICAID ==
[~2024-05-02] VITALS: Ht 187.9 cm; Wt 90.7 kg
[2024-05-02 21:10] VITALS: BP 128/72
[2024-05-02 22:21] LABS: BASO # 0.1 10*3/uL (0.0-0.1); BASO % 1.2 % (0.0-1.0); EOS # 0.4 10*3/uL (0.0-0.4); EOS % 6.7 % (1.0-4.0); HEMATOCRIT 46.9 % (42.0-52.0); MEAN CELL VOLUME 84.7 fl (80.0-94.0); MEAN CORPUSCULAR HGB 27.1 pg (27.0-31.0); MEAN PLATELET VOLUME 9.4 fl (9.6-12.3); MONO # 0.2 10*3/uL (0.1-1.0); MONO % 2.8 % (3.0-9.0); NEUT % 52.4 % (47.0-73.0); PLATELET COUNT AUTOMATED 299 10*3/uL (130-400); RED BLOOD COUNT 5.54 10*6/uL (4.50-5.90); RED CELL DISTRI WIDTH 13.3 % (0-14.5); WHITE BLOOD COUNT 5.7 10*3/uL (4.8-10.8)
[2024-05-02 22:43] LABS: BUN 10 mg/dl (9-23); CHLORIDE 108 mmol/L (98-107); POTASSIUM 3.9 mmol/L (3.4-5.1)
[2024-05-02] MEDS ORDERED: PREDNISONE20 M1 PO (22:50)
[2024-05-02] MEDS ORDERED: methylPREDNISolone sod succ 125 MG VIAL IM ONE (22:55)
[2024-05-02] MEDS ORDERED: Acetaminophen/Oxycodone 5 MG/325 MG TABLET PO ONE (22:55)
== END 2024-05-02 23:10 | disposition home or self-care (01) ==
LOC: ED 20:59
PROVIDERS: Nurse Practitioner Family
DX: R07.1 Chest pain on breathing (principal); F41.9 Anxiety disorder, unspecified; K21.9 Gastro-esophageal reflux disease without esophagitis; E87.6 Hypokalemia; G43.909 Migraine, unspecified, not intractable, without status migrainosus; J45.909 Unspecified asthma, uncomplicated; F32.A Depression, unspecified; F17.220 Nicotine dependence, chewing tobacco, uncomplicated; Z88.6 Allergy status to analgesic agent; Z86.718 Personal history of other venous thrombosis and embolism; Z98.890 Other specified postprocedural states

== ENCOUNTER 2024-05-11 19:46 | Emergency (ER) | payer OTHER, MEDICAID ==
[~2024-05-11] VITALS: Ht 187.9 cm; Wt 90.7 kg
[~2024-05-11 19:46] MED LIST changes: +PREDNISONE20 M1 PO
[2024-05-11 19:51] VITALS: BP 114/64
[2024-05-11] MEDS ORDERED: methylPREDNISolone sod succ 125 MG VIAL IM ONE (22:00)
[2024-05-11] MEDS ORDERED: Acetaminophen/Oxycodone 5 MG/325 MG TABLET PO ONE (22:00)
== END 2024-05-11 22:30 | disposition home or self-care (01) ==
LOC: ED 19:46
DX: M25.511 Pain in right shoulder (principal); G43.909 Migraine, unspecified, not intractable, without status migrainosus; M54.2 Cervicalgia; F41.9 Anxiety disorder, unspecified; J45.909 Unspecified asthma, uncomplicated; K21.9 Gastro-esophageal reflux disease without esophagitis; E87.6 Hypokalemia; F32.A Depression, unspecified; Z86.718 Personal history of other venous thrombosis and embolism; F17.220 Nicotine dependence, chewing tobacco, uncomplicated; Z88.6 Allergy status to analgesic agent; Z98.890 Other specified postprocedural states

== ENCOUNTER 2024-06-06 22:46 | Emergency (ER) | payer OTHER, MEDICAID ==
[~2024-06-06] VITALS: Ht 187.9 cm; Wt 90.7 kg
[2024-06-06 22:46] VITALS: BP 124/76
[2024-06-07] MEDS ORDERED: Ondansetron Hydrochloride 4 MG TAB SL ONE (01:20)
[2024-06-07] MEDS ORDERED: Ondansetron4 MG PO (01:54)
== END 2024-06-07 02:01 | disposition home or self-care (01) ==
LOC: ED 22:46
DX: B34.9 Viral infection, unspecified (principal); Z20.822 Contact with and (suspected) exposure to COVID-19; R11.2 Nausea with vomiting, unspecified; R42 Dizziness and giddiness; R53.1 Weakness; F41.9 Anxiety disorder, unspecified; K21.9 Gastro-esophageal reflux disease without esophagitis; J45.909 Unspecified asthma, uncomplicated; F32.A Depression, unspecified; Z86.718 Personal history of other venous thrombosis and embolism; F17.220 Nicotine dependence, chewing tobacco, uncomplicated; Z88.6 Allergy status to analgesic agent; Z98.890 Other specified postprocedural states

== ENCOUNTER 2024-06-28 20:56 | Emergency (ER) | payer OTHER, MEDICAID ==
[~2024-06-28] VITALS: Ht 185.4 cm; Wt 90.7 kg
[2024-06-28 20:56] VITALS: BP 126/78
[~2024-06-28 20:56] MED LIST changes: +Ondansetron4 MG PO
[2024-06-28 21:30] LABS: BASO # 0.1 10*3/uL (0.0-0.1); BASO % 0.9 % (0.0-1.0); EOS # 0.4 10*3/uL (0.0-0.4); EOS % 4.4 % (1.0-4.0); MEAN CELL VOLUME 84.2 fl (80.0-94.0); MEAN CORPUSCULAR HGB 27.7 pg (27.0-31.0); MEAN CORPUSCULAR HGB CONC 32.9 g/dl (33.0-37.0); MONO # 0.4 10*3/uL (0.1-1.0); MONO % 4.9 % (3.0-9.0); NEUT % 47.3 % (47.0-73.0); PLATELET COUNT AUTOMATED 331 10*3/uL (130-400); RED BLOOD COUNT 4.87 10*6/uL (4.50-5.90); WHITE BLOOD COUNT 8.6 10*3/uL (4.8-10.8)
[2024-06-28 21:48] LABS: BUN 15 mg/dl (9-23); CHLORIDE 108 mmol/L (98-107); POTASSIUM 3.2 mmol/L (3.4-5.1)
[2024-06-28] MEDS ORDERED: POTASSIUM CHLORIDE 20 MEQ TAB PO ONE (22:05)
[2024-06-28] MEDS ORDERED: LORazepam 1 MG TAB PO ONE (22:05)
== END 2024-06-28 23:29 | disposition home or self-care (01) ==
LOC: ED 20:56
PROVIDERS: Nurse Practitioner Family
DX: R07.89 Other chest pain (principal); E87.6 Hypokalemia; F41.9 Anxiety disorder, unspecified; K21.9 Gastro-esophageal reflux disease without esophagitis; J45.909 Unspecified asthma, uncomplicated; Z86.718 Personal history of other venous thrombosis and embolism; F32.A Depression, unspecified; F17.220 Nicotine dependence, chewing tobacco, uncomplicated; Z88.6 Allergy status to analgesic agent; Z98.890 Other specified postprocedural states

== ENCOUNTER 2024-07-01 20:17 | Emergency (ER) | payer OTHER, MEDICAID ==
[~2024-07-01] VITALS: Ht 185.4 cm; Wt 90.7 kg
[2024-07-01 20:17] VITALS: BP 126/84
[2024-07-01] MEDS ORDERED: hydrOXYzine pamoate 25 MG CAP PO ONE (20:30)
== END 2024-07-01 20:50 | disposition home or self-care (01) ==
LOC: ED 20:17
DX: F41.9 Anxiety disorder, unspecified (principal); J45.909 Unspecified asthma, uncomplicated; K21.9 Gastro-esophageal reflux disease without esophagitis; F17.220 Nicotine dependence, chewing tobacco, uncomplicated; Z88.6 Allergy status to analgesic agent; Z79.899 Other long term (current) drug therapy

== ENCOUNTER 2024-07-03 23:47 | Emergency (ER) | payer OTHER, MEDICAID ==
[~2024-07-03] VITALS: Ht 187.9 cm; Wt 90.7 kg
[2024-07-04 01:01] LABS: BASO # 0.1 10*3/uL (0.0-0.1); BASO % 1.4 % (0.0-1.0); EOS # 0.5 10*3/uL (0.0-0.4); EOS % 8.2 % (1.0-4.0); HEMATOCRIT 41.3 % (42.0-52.0); MEAN CELL VOLUME 85.2 fl (80.0-94.0); MEAN CORPUSCULAR HGB 27.6 pg (27.0-31.0); MEAN CORPUSCULAR HGB CONC 32.4 g/dl (33.0-37.0); MEAN PLATELET VOLUME 8.9 fl (9.6-12.3); MONO # 0.4 10*3/uL (0.1-1.0); MONO % 5.5 % (3.0-9.0); NEUT # 2.9 10*3/uL (2.3-7.9); NEUT % 44.6 % (47.0-73.0); PLATELET COUNT AUTOMATED 253 10*3/uL (130-400); RED BLOOD COUNT 4.85 10*6/uL (4.50-5.90); RED CELL DISTRI WIDTH 14.2 % (0-14.5); WHITE BLOOD COUNT 6.6 10*3/uL (4.8-10.8)
[2024-07-04 01:22] LABS: ALKALINE PHOSPHATASE 63 U/L (46-116); BUN 13 mg/dl (9-23); CHLORIDE 104 mmol/L (98-107); LIPASE 26 U/L (12-53); POTASSIUM 3.7 mmol/L (3.4-5.1); SGPT/ALT 14 U/L (5-49)
== END 2024-07-04 01:59 | disposition home or self-care (01) ==
LOC: ED 23:47
PROVIDERS: Internal Medicine
DX: R10.31 Right lower quadrant pain (principal); F41.9 Anxiety disorder, unspecified; K21.9 Gastro-esophageal reflux disease without esophagitis; J45.909 Unspecified asthma, uncomplicated; Z86.718 Personal history of other venous thrombosis and embolism; F32.A Depression, unspecified; F17.220 Nicotine dependence, chewing tobacco, uncomplicated; Z88.6 Allergy status to analgesic agent; Z98.890 Other specified postprocedural states

== ENCOUNTER 2024-07-07 22:35 | Emergency (ER) | payer OTHER, MEDICAID ==
[~2024-07-07] VITALS: Ht 187.9 cm; Wt 93.1 kg
[2024-07-07] MEDS ORDERED: diazePAM 10 MG/2 ML SYR IV ONE (22:40)
[2024-07-07] MEDS ORDERED: MG-AL HYDROXIDE/SIMETICONE 30 ML UDC PO STA (23:50)
[2024-07-07] MEDS ORDERED: Lidocaine Hydrochloride 15 ML UDC PO STA (23:50)
[2024-07-07] MEDS ORDERED: Dicyclomine Hydrochloride 20 MG/10 ML OSYR PO STA (23:50)
[2024-07-08 00:02] VITALS: BP 114/72
== END 2024-07-08 01:28 | disposition home or self-care (01) ==
LOC: ED 22:35
DX: F41.1 Generalized anxiety disorder (principal); R00.2 Palpitations; R10.13 Epigastric pain; F17.220 Nicotine dependence, chewing tobacco, uncomplicated; Z88.6 Allergy status to analgesic agent; Z79.899 Other long term (current) drug therapy

== ENCOUNTER 2024-07-16 21:05 | Emergency (ER) | payer OTHER, MEDICAID ==
[~2024-07-16] VITALS: Ht 188 cm; Wt 91.6 kg
[2024-07-16 21:26] VITALS: BP 106/51
[2024-07-16 22:09] LABS: BASO # 0.1 10*3/uL (0.0-0.1); BASO % 1.4 % (0.0-1.0); EOS # 0.5 10*3/uL (0.0-0.4); EOS % 8.9 % (1.0-4.0); HEMATOCRIT 41.7 % (42.0-52.0); MEAN CELL VOLUME 84.4 fl (80.0-94.0); MEAN CORPUSCULAR HGB 26.9 pg (27.0-31.0); MEAN CORPUSCULAR HGB CONC 31.9 g/dl (33.0-37.0); MEAN PLATELET VOLUME 8.9 fl (9.6-12.3); MONO # 0.3 10*3/uL (0.1-1.0); MONO % 5.3 % (3.0-9.0); NEUT # 2.5 10*3/uL (2.3-7.9); NEUT % 43.7 % (47.0-73.0); PLATELET COUNT AUTOMATED 299 10*3/uL (130-400); RED BLOOD COUNT 4.94 10*6/uL (4.50-5.90); RED CELL DISTRI WIDTH 13.3 % (0-14.5); WHITE BLOOD COUNT 5.6 10*3/uL (4.8-10.8)
[2024-07-16 22:28] LABS: BUN 9 mg/dl (9-23); CHLORIDE 106 mmol/L (98-107); POTASSIUM 3.7 mmol/L (3.4-5.1)
[2024-07-17] MEDS ORDERED: hydrOXYzine pamoate 25 MG CAP PO ONE (00:15)
[2024-07-17] MEDS ORDERED: Cyclobenzaprine Hydrochlorid 10 MG TAB PO ONE (00:15)
[2024-07-17] MEDS ORDERED: CYCLOBENZAPRINE5 M3 PO (00:34)
== END 2024-07-17 00:35 | disposition home or self-care (01) ==
LOC: ED 21:05
PROVIDERS: Internal Medicine
DX: M62.838 Other muscle spasm (principal); M25.511 Pain in right shoulder; F17.220 Nicotine dependence, chewing tobacco, uncomplicated; Z88.6 Allergy status to analgesic agent; Z79.899 Other long term (current) drug therapy; Z86.718 Personal history of other venous thrombosis and embolism

== ENCOUNTER 2024-07-29 14:59 | Emergency (ER) | payer OTHER, MEDICAID ==
[~2024-07-29] VITALS: Ht 187.9 cm; Wt 89.8 kg
[~2024-07-29 14:59] MED LIST changes: +CYCLOBENZAPRINE5 M3 PO
[2024-07-29 15:25] VITALS: BP 132/78
[2024-07-29] MEDS ORDERED: hydrOXYzine pamoate 25 MG CAP PO ONE (15:35)
[2024-07-29] MEDS ORDERED: MAG GLYCINATE100 MG PO (15:45)
[2024-07-29] MEDS ORDERED: PROTONIX TR40 M1 PO (15:46)
[2024-07-29] MEDS ORDERED: VENT7GM INH (15:47)
[2024-07-29] MEDS ORDERED: BUSPAR5 MG PO (15:48)
[2024-07-29] MEDS ORDERED: XARELTO20 M1 PO (15:48)
[2024-07-29 15:57] LABS: BASO # 0.1 10*3/uL (0.0-0.1); BASO % 1.3 % (0.0-1.0); EOS # 0.2 10*3/uL (0.0-0.4); EOS % 3.2 % (1.0-4.0); HEMATOCRIT 43.3 % (42.0-52.0); MEAN CELL VOLUME 84.6 fl (80.0-94.0); MEAN CORPUSCULAR HGB 27.3 pg (27.0-31.0); MEAN CORPUSCULAR HGB CONC 32.3 g/dl (33.0-37.0); MEAN PLATELET VOLUME 9.2 fl (9.6-12.3); MONO # 0.2 10*3/uL (0.1-1.0); MONO % 3.4 % (3.0-9.0); NEUT # 2.7 10*3/uL (2.3-7.9); PLATELET COUNT AUTOMATED 310 10*3/uL (130-400); RED BLOOD COUNT 5.12 10*6/uL (4.50-5.90); RED CELL DISTRI WIDTH 13.5 % (0-14.5); WHITE BLOOD COUNT 4.7 10*3/uL (4.8-10.8)
[2024-07-29 16:14] LABS: BUN 11 mg/dl (9-23); CHLORIDE 106 mmol/L (98-107); POTASSIUM 3.7 mmol/L (3.4-5.1)
[2024-07-29] MEDS ORDERED: VISTARIL25 MG PO (16:18)
== END 2024-07-29 16:18 | disposition home or self-care (01) ==
LOC: ED 14:59
PROVIDERS: Physician Assistant Medical
DX: F41.9 Anxiety disorder, unspecified (principal); R20.2 Paresthesia of skin; K21.9 Gastro-esophageal reflux disease without esophagitis; G43.909 Migraine, unspecified, not intractable, without status migrainosus; J45.909 Unspecified asthma, uncomplicated; F17.220 Nicotine dependence, chewing tobacco, uncomplicated; Z88.6 Allergy status to analgesic agent; Z79.899 Other long term (current) drug therapy; Z86.718 Personal history of other venous thrombosis and embolism

== ENCOUNTER 2024-07-31 12:53 | Emergency (ER) | payer OTHER, MEDICAID ==
[~2024-07-31] VITALS: Ht 187.9 cm; Wt 89.8 kg
[~2024-07-31 12:53] MED LIST changes: +BUSPAR5 MG PO; +MAG GLYCINATE100 MG PO; +PROTONIX TR40 M1 PO; +VENT7GM INH; +VISTARIL25 MG PO; +XARELTO20 M1 PO
[2024-07-31 13:10] VITALS: BP 135/70
[2024-07-31 13:31] LABS: BASO # 0.1 10*3/uL (0.0-0.1); BASO % 1.1 % (0.0-1.0); EOS # 0.4 10*3/uL (0.0-0.4); EOS % 8.8 % (1.0-4.0); HEMATOCRIT 44.2 % (42.0-52.0); MEAN CELL VOLUME 85.2 fl (80.0-94.0); MEAN CORPUSCULAR HGB CONC 31.7 g/dl (33.0-37.0); MEAN PLATELET VOLUME 9.5 fl (9.6-12.3); MONO # 0.2 10*3/uL (0.1-1.0); MONO % 5.3 % (3.0-9.0); NEUT # 2.1 10*3/uL (2.3-7.9); NEUT % 46.5 % (47.0-73.0); PLATELET COUNT AUTOMATED 321 10*3/uL (130-400); RED BLOOD COUNT 5.19 10*6/uL (4.50-5.90); RED CELL DISTRI WIDTH 13.4 % (0-14.5); WHITE BLOOD COUNT 4.5 10*3/uL (4.8-10.8)
[2024-07-31 13:41] LABS: ACT PARTIAL THROMBO TIME 30.5 SECONDS (20.0-32.1)
[2024-07-31 14:11] LABS: ALKALINE PHOSPHATASE 67 U/L (46-116); BUN 12 mg/dl (9-23); CHLORIDE 106 mmol/L (98-107); POTASSIUM 3.7 mmol/L (3.4-5.1); SGPT/ALT 12 U/L (5-49); TOTAL PROTEIN 7.4 gm/dL (6.0-8.0)
[2024-07-31] MEDS ORDERED: hydrOXYzine pamoate 25 MG CAP PO ONE (15:15)
== END 2024-07-31 15:34 | disposition home or self-care (01) ==
LOC: ED 12:53
PROVIDERS: Nurse Practitioner
DX: F41.9 Anxiety disorder, unspecified (principal); F17.220 Nicotine dependence, chewing tobacco, uncomplicated; Z88.6 Allergy status to analgesic agent; Z79.899 Other long term (current) drug therapy

== ENCOUNTER 2024-08-21 21:43 | Emergency (ER) | payer OTHER, MEDICAID ==
[~2024-08-21] VITALS: Ht 187.9 cm; Wt 90.7 kg
[2024-08-21 21:56] VITALS: BP 119/80
[2024-08-21] MEDS ORDERED: predniSONE 20 MG TAB PO ONE (22:05)
[2024-08-21] MEDS ORDERED: METHOCARBAMOL 750 MG TAB PO ONE (22:05)
[2024-08-21] MEDS ORDERED: PREDNISONE20 M1 PO (22:13)
[2024-08-21] MEDS ORDERED: METHOCARBAMOL750 M1 PO (22:13)
== END 2024-08-21 22:32 | disposition home or self-care (01) ==
LOC: ED 21:43
DX: S29.011A Strain of muscle and tendon of front wall of thorax, initial encounter (principal); F17.290 Nicotine dependence, other tobacco product, uncomplicated; Z88.6 Allergy status to analgesic agent; Z79.899 Other long term (current) drug therapy; X50.3XXA Overexertion from repetitive movements, initial encounter; Y93.89 Activity, other specified; Y92.89 Other specified places as the place of occurrence of the external cause; Y99.8 Other external cause status

== ENCOUNTER 2024-08-23 08:02 | Emergency (ER) | payer OTHER, MEDICAID ==
[~2024-08-23] VITALS: Ht 187.9 cm; Wt 90.7 kg
[~2024-08-23 08:02] MED LIST changes: +METHOCARBAMOL750 M1 PO
[2024-08-23 08:22] VITALS: BP 109/92
[2024-08-23] MEDS ORDERED: MORPHINE Sulfate 2 MG/ML SYR IV ONE (08:35)
[2024-08-23] MEDS ORDERED: SODIUM CHLORIDE 0.9% 1,000 ML IV ONE (08:35)
[2024-08-23] MEDS ORDERED: Ondansetron Hydrochloride 4 MG/2 ML VIAL IV ONE ×2 (08:35→10:05)
[2024-08-23] MEDS ORDERED: IOHEXOL 300 MG/ML 100 ML VIAL IV ONE (08:40)
[2024-08-23] MEDS ORDERED: IOHEXOL 300 MG/ML 100 ML VIAL ONE (09:01)
[2024-08-23 09:04] LABS: BILIRUBIN Negative (Negative); BLOOD Negative (Negative); CLARITY Clear (Clear); COLOR Yellow (Yellow); GLUCOSE Negative (Negative); KETONE Trace (Negative); LEUKO ESTERASE Negative (Negative); NITRITE Negative (Negative); PH 5.5 (4.5-8.0); SPECIFIC GRAVITY >= 1.030 (1.001-1.030)
[2024-08-23 09:17] LABS: EPITHELIAL CELLS 0-2; MUCOUS 1+
[2024-08-23] MEDS ORDERED: Pantoprazole Sodium 40 MG VIAL IV ONE ×2 (09:25→09:30)
[2024-08-23] MEDS ORDERED: Pantoprazole Sodium 80 MG,IV 1 EA in SYRINGE INFUSION 20 ML IV ONE (09:30)
[2024-08-23] MEDS ORDERED: HYDROmorphONE Hydrochloride 0.5 MG/0.5 ML SYRINGE IV ONE (09:40)
[2024-08-23] MEDS ORDERED: Piperacillin Sodium/Tazobact 100 ML IV ONE (10:00)
[2024-08-23 10:23] LABS: BASO % 0.1 % (0.0-1.0); EOS % 0.1 % (1.0-4.0); HEMATOCRIT 43.6 % (42.0-52.0); MEAN CORPUSCULAR HGB 27.3 pg (27.0-31.0); MEAN CORPUSCULAR HGB CONC 32.1 g/dl (33.0-37.0); MONO # 0.2 10*3/uL (0.1-1.0); NEUT # 5.6 10*3/uL (2.3-7.9); NEUT % 74.9 % (47.0-73.0); PLATELET COUNT AUTOMATED 317 10*3/uL (130-400); RED BLOOD COUNT 5.13 10*6/uL (4.50-5.90); RED CELL DISTRI WIDTH 13.1 % (0-14.5); WHITE BLOOD COUNT 7.5 10*3/uL (4.8-10.8)
[2024-08-23 10:47] LABS: ALKALINE PHOSPHATASE 72 U/L (46-116); BUN 13 mg/dl (9-23); CHLORIDE 103 mmol/L (98-107); LIPASE 28 U/L (12-53); POTASSIUM 3.8 mmol/L (3.4-5.1); SGPT/ALT 12 U/L (5-49); TOTAL PROTEIN 7.5 gm/dL (6.0-8.0)
[2024-08-23] MEDS ORDERED: Ondansetron4 MG SL (11:07)
== END 2024-08-23 11:17 | disposition home or self-care (01) ==
LOC: ED 08:02
PROVIDERS: Internal Medicine
DX: K52.9 Noninfective gastroenteritis and colitis, unspecified (principal); F17.200 Nicotine dependence, unspecified, uncomplicated; Z79.899 Other long term (current) drug therapy; Z88.6 Allergy status to analgesic agent; Z88.8 Allergy status to other drugs, medicaments and biological substances; Z98.890 Other specified postprocedural states

== ENCOUNTER 2024-08-26 01:05 | Emergency (ER) | payer OTHER, MEDICAID ==
[~2024-08-26 01:05] MED LIST changes: +Ondansetron4 MG SL
[2024-08-26 01:14] VITALS: BP 136/82
[2024-08-26 02:24] LABS: BASO % 0.1 % (0.0-1.0); EOS # 0.3 10*3/uL (0.0-0.4); EOS % 4.3 % (1.0-4.0); HEMATOCRIT 38.2 % (42.0-52.0); MEAN CORPUSCULAR HGB 27.4 pg (27.0-31.0); MONO # 0.3 10*3/uL (0.1-1.0); MONO % 3.7 % (3.0-9.0); NEUT # 4.4 10*3/uL (2.3-7.9); NEUT % 60.1 % (47.0-73.0); PLATELET COUNT AUTOMATED 263 10*3/uL (130-400); RED CELL DISTRI WIDTH 12.8 % (0-14.5); WHITE BLOOD COUNT 7.3 10*3/uL (4.8-10.8)
[2024-08-26 02:54] LABS: ALKALINE PHOSPHATASE 60 U/L (46-116); BUN 12 mg/dl (9-23); CHLORIDE 104 mmol/L (98-107); POTASSIUM 3.1 mmol/L (3.4-5.1); SGPT/ALT 10 U/L (5-49); TOTAL PROTEIN 6.6 gm/dL (6.0-8.0)
[2024-08-26] MEDS ORDERED: POTASSIUM CHLORIDE 20 MEQ TAB PO ONE (05:30)
== END 2024-08-26 05:33 | disposition home or self-care (01) ==
LOC: ED 01:05
PROVIDERS: Emergency Medicine
DX: F41.1 Generalized anxiety disorder (principal); R00.1 Bradycardia, unspecified; J45.909 Unspecified asthma, uncomplicated; K21.9 Gastro-esophageal reflux disease without esophagitis; G43.909 Migraine, unspecified, not intractable, without status migrainosus; F17.220 Nicotine dependence, chewing tobacco, uncomplicated; Z88.6 Allergy status to analgesic agent; Z88.8 Allergy status to other drugs, medicaments and biological substances; Z79.899 Other long term (current) drug therapy; Z98.890 Other specified postprocedural states

== ENCOUNTER 2024-09-06 21:32 | Emergency (ER) | payer OTHER, MEDICAID ==
[~2024-09-06] VITALS: Ht 187.9 cm; Wt 87.2 kg
[2024-09-06 21:45] VITALS: BP 116/63
[2024-09-06] MEDS ORDERED: LORazepam 1 MG TAB PO ONE (21:50)
== END 2024-09-06 22:02 | disposition home or self-care (01) ==
LOC: ED 21:32
DX: F41.9 Anxiety disorder, unspecified (principal); J45.909 Unspecified asthma, uncomplicated; K21.9 Gastro-esophageal reflux disease without esophagitis; F17.200 Nicotine dependence, unspecified, uncomplicated; Z79.899 Other long term (current) drug therapy; Z88.6 Allergy status to analgesic agent

== ENCOUNTER 2024-09-14 15:46 | Emergency (ER) | payer OTHER, MEDICAID ==
[2024-09-14 16:07] VITALS: BP 130/92
== END 2024-09-14 17:42 | disposition left against medical advice (07) ==
LOC: ED 15:46
DX: M25.512 Pain in left shoulder (principal); M54.2 Cervicalgia; Z53.21 Procedure and treatment not carried out due to patient leaving prior to being seen by health care provider

== ENCOUNTER 2024-09-14 19:04 | Emergency (ER) | payer OTHER, MEDICAID ==
[~2024-09-14] VITALS: Ht 187.9 cm
[2024-09-14 20:23] VITALS: BP 127/78
[2024-09-14] MEDS ORDERED: METHOCARBAMOL 750 MG TAB PO ONE (22:00)
== END 2024-09-14 22:26 | disposition home or self-care (01) ==
LOC: ED 19:04
DX: M94.0 Chondrocostal junction syndrome [Tietze] (principal); J45.909 Unspecified asthma, uncomplicated; F41.9 Anxiety disorder, unspecified; K21.9 Gastro-esophageal reflux disease without esophagitis; F32.A Depression, unspecified; Z79.899 Other long term (current) drug therapy; Z88.6 Allergy status to analgesic agent

== ENCOUNTER 2024-09-16 22:18 | Emergency (ER) | payer OTHER, MEDICAID ==
[~2024-09-16] VITALS: Ht 61 cm; Wt 88.5 kg
[2024-09-16 22:22] VITALS: BP 141/77
[2024-09-16] MEDS ORDERED: METHOCARBAMOL 750 MG TAB PO ONE (22:40)
[2024-09-16] MEDS ORDERED: MORPHINE Sulfate 2 MG/ML SYR IV ONE (22:40)
[2024-09-16] MEDS ORDERED: Ondansetron Hydrochloride 4 MG/2 ML VIAL IV ONE (22:40)
[2024-09-16] MEDS ORDERED: IOHEXOL 350 MG/ML 100 ML VIAL IV ONE (22:45)
[2024-09-16] MEDS ORDERED: SODIUM CHLORIDE 0.9% 100 ML BAG IV ONE (22:45)
[2024-09-16 23:15] LABS: BASO % 0.5 % (0.0-1.0); EOS # 0.2 10*3/uL (0.0-0.4); EOS % 2.3 % (1.0-4.0); HEMATOCRIT 44.4 % (42.0-52.0); MEAN CELL VOLUME 86.9 fl (80.0-94.0); MEAN CORPUSCULAR HGB 27.4 pg (27.0-31.0); MEAN CORPUSCULAR HGB CONC 31.5 g/dl (33.0-37.0); MEAN PLATELET VOLUME 9.2 fl (9.6-12.3); MONO # 0.2 10*3/uL (0.1-1.0); MONO % 2.6 % (3.0-9.0); NEUT # 5.9 10*3/uL (2.3-7.9); NEUT % 76.5 % (47.0-73.0); PLATELET COUNT AUTOMATED 306 10*3/uL (130-400); RED BLOOD COUNT 5.11 10*6/uL (4.50-5.90); RED CELL DISTRI WIDTH 13.5 % (0-14.5); WHITE BLOOD COUNT 7.7 10*3/uL (4.8-10.8)
[2024-09-16 23:36] LABS: ALKALINE PHOSPHATASE 59 U/L (46-116); BUN 13 mg/dl (9-23); CHLORIDE 105 mmol/L (98-107); CPK 40 U/L (34-171); SGPT/ALT 12 U/L (5-49); TOTAL PROTEIN 6.7 gm/dL (6.0-8.0)
[2024-09-17] MEDS ORDERED: HYDROmorphone Hydrochloride 1 MG/ML SYR IV ONE (01:20)
[2024-09-17] MEDS ORDERED: Ondansetron Hydrochloride 4 MG/2 ML VIAL IV ONE (01:20)
== END 2024-09-17 02:25 | disposition home or self-care (01) ==
LOC: ED 22:18
PROVIDERS: Emergency Medicine
DX: R07.1 Chest pain on breathing (principal); F17.220 Nicotine dependence, chewing tobacco, uncomplicated; Z88.6 Allergy status to analgesic agent; Z79.899 Other long term (current) drug therapy

== ENCOUNTER 2024-10-29 21:09 | Inpatient (IN) | payer MEDICAID ==
[~2024-10-29] VITALS: Ht 188 cm; Wt 89.4 kg
[2024-10-29 21:12] VITALS: BP 131/74
[2024-10-29] MEDS ORDERED: SODIUM CHLORIDE 0.9% 1,000 ML IV ONE (21:35)
[2024-10-29 21:51] LABS: BASO # 0.1 10*3/uL (0.0-0.1); BASO % 0.8 % (0.0-1.0); EOS # 0.1 10*3/uL (0.0-0.4); EOS % 2.0 % (1.0-4.0); MEAN CELL VOLUME 83.6 fl (80.0-94.0); MEAN CORPUSCULAR HGB 26.6 pg (27.0-31.0); MEAN PLATELET VOLUME 9.3 fl (9.6-12.3); MONO # 0.2 10*3/uL (0.1-1.0); MONO % 3.0 % (3.0-9.0); NEUT # 4.2 10*3/uL (2.3-7.9); NEUT % 68.7 % (47.0-73.0); NUCLEATED RED BLOOD CELL 0.0 % (0.0-0.0); NUCLEATED RED BLOOD CELL 0.0 10*3/uL (0.0-0.0); PLATELET COUNT AUTOMATED 299 10*3/uL (130-400); RED CELL DISTRI WIDTH 12.8 % (0-14.5)
[2024-10-29 22:07] LABS: BUN 10 mg/dl (9-23); ETHYL ALCOHOL 5.2 mg/dl (<3)
[2024-10-30 00:03] VITALS: BP 125/74
[2024-10-30] MEDS ORDERED: ACETAMINOPHEN 325 MG TAB PO PRN (00:05)
[2024-10-30] MEDS ORDERED: Ondansetron Hydrochloride 4 MG/2 ML VIAL IV PRN (00:05)
[2024-10-30] MEDS ORDERED: BISACODYL 5 MG TAB PO PRN (00:05)
[2024-10-30] MEDS ORDERED: ACETAMINOPHEN 650 MG SUPP R PRN (00:05)
[2024-10-30] MEDS ORDERED: BISACODYL 10 MG SUPP R PRN (00:05)
[2024-10-30] MEDS ORDERED: LORAZEPAM1 MG PO (00:23)
[2024-10-30] MEDS ORDERED: METHOCARBAMOL 750 MG TAB PO PRN (00:25)
[2024-10-30] MEDS ORDERED: Dicyclomine Hydrochloride 20 MG TAB PO PRN (00:25)
[2024-10-30] MEDS ORDERED: hydrOXYzine 50 MG CAP PO PRN (00:25)
[2024-10-30 00:50] VITALS: BP 115/77
[2024-10-30 02:36] LABS: URINE AMPHETAMINES Negative (1000ng/ml); URINE BARBITURATES Negative (200ng/ml); URINE BENZODIAZEPINES Negative (200ng/ml); URINE CANNABINOIDS (THC) Negative (50ng/ml); URINE COCAINE Negative (300ng/ml); URINE METHADONE Negative (300ng/ml); URINE OPIATES Negative (300ng/ml); URINE PHENCYCLIDINE Negative (25ng/ml)
[2024-10-30 06:14] LABS: BASO # 0.1 10*3/uL (0.0-0.1); BASO % 1.1 % (0.0-1.0); EOS # 0.3 10*3/uL (0.0-0.4); EOS % 5.5 % (1.0-4.0); MEAN CELL VOLUME 83.6 fl (80.0-94.0); MEAN CORPUSCULAR HGB 26.8 pg (27.0-31.0); MEAN PLATELET VOLUME 9.7 fl (9.6-12.3); MONO # 0.3 10*3/uL (0.1-1.0); MONO % 4.5 % (3.0-9.0); NEUT # 3.1 10*3/uL (2.3-7.9); NEUT % 50.0 % (47.0-73.0); NUCLEATED RED BLOOD CELL 0.0 % (0.0-0.0); NUCLEATED RED BLOOD CELL 0.0 10*3/uL (0.0-0.0); PLATELET COUNT AUTOMATED 292 10*3/uL (130-400); RED CELL DISTRI WIDTH 12.7 % (0-14.5)
[2024-10-30 06:30] LABS: BUN 10 mg/dl (9-23); FREE T4 1.00 ng/dl (0.89-1.76); LDL CHOLESTEROL 72 mg/dL (9-159)
[2024-10-30 06:31] LABS: VITAMIN D, 25-HYDROXY 21.3 ng/mL (30-100)
[2024-10-30 06:32] LABS: SGPT/ALT < 7 U/L (5-49)
[2024-10-30 06:49] LABS: ACT PARTIAL THROMBO TIME 29.2 SECONDS (20.0-32.1)
[2024-10-30 08:00] VITALS: BP 114/65
[2024-10-30] MEDS ORDERED: Buprenorphine Hydrochloride 2 MG TAB SL SCH ×2 (08:30→16:35)
[2024-10-30] MEDS ORDERED: Vitamin D 1,000 IU TAB (25 MCG) PO SCH (11:10)
[2024-10-30 12:00] VITALS: BP 122/76
[2024-10-30 16:00] VITALS: BP 117/71
[2024-10-30 20:00] VITALS: BP 120/57
[2024-10-30] MEDS ORDERED: RIVAROXABAN 20 MG TAB PO SCH (22:00)
[2024-10-31] VITALS: BP 101/61
[2024-10-31 08:00] VITALS: BP 114/63
[2024-10-31] MEDS ORDERED: Buprenorphine Hydrochloride 2 MG TAB SL SCH (08:00)
[2024-10-31 12:00] VITALS: BP 122/68
[2024-10-31 16:00] VITALS: BP 123/73
[2024-10-31 20:00] VITALS: BP 110/69
[2024-11-01] VITALS: BP 121/73
[2024-11-01 06:22] LABS: BASO # 0.1 10*3/uL (0.0-0.1); BASO % 1.5 % (0.0-1.0); EOS # 0.7 10*3/uL (0.0-0.4); EOS % 11.0 % (1.0-4.0); MEAN CELL VOLUME 85.1 fl (80.0-94.0); MEAN CORPUSCULAR HGB 26.6 pg (27.0-31.0); MEAN PLATELET VOLUME 9.9 fl (9.6-12.3); MONO # 0.3 10*3/uL (0.1-1.0); MONO % 4.6 % (3.0-9.0); NEUT # 1.7 10*3/uL (2.3-7.9); NEUT % 28.4 % (47.0-73.0); NUCLEATED RED BLOOD CELL 0.0 % (0.0-0.0); NUCLEATED RED BLOOD CELL 0.0 10*3/uL (0.0-0.0); PLATELET COUNT AUTOMATED 296 10*3/uL (130-400); RED CELL DISTRI WIDTH 12.9 % (0-14.5)
[2024-11-01 06:26] LABS: BUN 7 mg/dl (9-23)
[2024-11-01 08:00] VITALS: BP 115/65
[2024-11-01] MEDS ORDERED: Promethazine Hydrochloride 25 MG TAB PO PRN ×2 (09:10→10:26)
[2024-11-01] MEDS ORDERED: CALCIUM (TUMS) 500MG PO PRN (09:40)
[2024-11-01] MEDS ORDERED: Dicyclomine Hydrochloride 20 MG/10 ML OSYR PO STA ×2 (09:56→10:50)
[2024-11-01] MEDS ORDERED: MG-AL HYDROXIDE/SIMETICONE 30 ML UDC PO STA ×2 (09:56→10:50)
[2024-11-01] MEDS ORDERED: SODIUM CHLORIDE 0.9% 1,000 ML IV ONE (10:05)
[2024-11-01] MEDS ORDERED: Promethazine Hydrochloride 25 MG/ML VIAL IV PRN (10:05)
[2024-11-01] MEDS ORDERED: SODIUM CHLORIDE 0.9% 1,000 ML IV SCH (10:25)
[2024-11-01] MEDS ORDERED: Ondansetron Hydrochloride 4 MG/2 ML VIAL IV PRN (10:25)
[2024-11-01 12:00] VITALS: BP 128/74
[2024-11-01] MEDS ORDERED: Buprenorphine Hydrochloride 2 MG TAB SL SCH (12:00)
[2024-11-01] MEDS ORDERED: MAGNESIUM CITRATE 296 ML BOT PO ONE (15:10)
[2024-11-01 16:00] VITALS: BP 111/63
[2024-11-01 20:00] VITALS: BP 124/80
[2024-11-02] VITALS: BP 107/62
[2024-11-02 05:31] LABS: BUN 7 mg/dl (9-23)
[2024-11-02 06:03] LABS: BASO # 0.1 10*3/uL (0.0-0.1); BASO % 1.3 % (0.0-1.0); EOS # 0.7 10*3/uL (0.0-0.4); EOS % 10.8 % (1.0-4.0); MEAN CELL VOLUME 85.4 fl (80.0-94.0); MEAN CORPUSCULAR HGB 26.8 pg (27.0-31.0); MEAN PLATELET VOLUME 9.9 fl (9.6-12.3); MONO # 0.3 10*3/uL (0.1-1.0); MONO % 4.6 % (3.0-9.0); NEUT # 2.2 10*3/uL (2.3-7.9); NEUT % 36.4 % (47.0-73.0); NUCLEATED RED BLOOD CELL 0.0 % (0.0-0.0); NUCLEATED RED BLOOD CELL 0.0 10*3/uL (0.0-0.0); PLATELET COUNT AUTOMATED 286 10*3/uL (130-400); RED CELL DISTRI WIDTH 13.1 % (0-14.5)
[2024-11-02 08:00] VITALS: BP 106/61
[2024-11-02] MEDS ORDERED: LACTULOSE 20 GM/30 ML UDC PO ONE ×2 (09:50→12:00)
[2024-11-02] MEDS ORDERED: BARIUM SULFATE 2% 450 ML BOT PO SCH (10:00)
[2024-11-02] MEDS ORDERED: IOHEXOL 300 MG/ML 100 ML VIAL IV ONE (10:00)
[2024-11-02 12:00] VITALS: BP 120/68
[2024-11-02] MEDS ORDERED: Albuterol Sulf/Ipratropium 3 ML VIAL NEB SCH (12:15)
[2024-11-02] MEDS ORDERED: BISACODYL 5 MG TAB PO ONE (12:20)
[2024-11-02 16:00] VITALS: BP 118/63
[2024-11-02 20:00] VITALS: BP 121/66
[2024-11-03] VITALS: BP 105/59
[2024-11-03 08:00] VITALS: BP 117/51
[2024-11-03] MEDS ORDERED: LACTULOSE20 GM PO (11:27)
[2024-11-03] MEDS ORDERED: TRAZODONE50 MG PO (11:27)
[2024-11-03] MEDS ORDERED: VITAMIN D250 MCG PO (11:27)
[2024-11-03] MEDS ORDERED: HYDROXYZINE PAM50 MG PO (11:27)
== END 2024-11-03 13:58 | disposition home or self-care (01) | DRG 773 ==
LOC: ED 21:09 → EDHOLD 23:46 → 4E 23:46 → EDHOLD 10-30 00:07 → 5E 10-30 00:14 → 4E 10-30 06:53
PROVIDERS: Nurse Practitioner Family; Student in an Organized Health Care Education/Training Program; ADMIT Student in an Organized Health Care Education/Training Program; ATTEND Student in an Organized Health Care Education/Training Program
DX: F11.23 Opioid dependence with withdrawal (principal); F10.929 Alcohol use, unspecified with intoxication, unspecified; D68.2 Hereditary deficiency of other clotting factors; I87.1 Compression of vein; M94.0 Chondrocostal junction syndrome [Tietze]; K59.00 Constipation, unspecified; F41.9 Anxiety disorder, unspecified; K21.9 Gastro-esophageal reflux disease without esophagitis; G43.909 Migraine, unspecified, not intractable, without status migrainosus; E55.9 Vitamin D deficiency, unspecified; F17.210 Nicotine dependence, cigarettes, uncomplicated; J45.909 Unspecified asthma, uncomplicated; F32.A Depression, unspecified; Z88.8 Allergy status to other drugs, medicaments and biological substances; Z91.09 Other allergy status, other than to drugs and biological substances; Z86.718 Personal history of other venous thrombosis and embolism; Z79.899 Other long term (current) drug therapy; Z79.01 Long term (current) use of anticoagulants; Z79.2 Long term (current) use of antibiotics; Z86.16 Personal history of COVID-19; Z71.6 Tobacco abuse counseling

== ENCOUNTER 2024-11-24 22:04 | Emergency (ER) | payer MEDICAID ==
[~2024-11-24] VITALS: Ht 188 cm; Wt 87.1 kg
[~2024-11-24 22:04] MED LIST changes: +HYDROXYZINE PAM50 MG PO; +LACTULOSE20 GM PO; +LORAZEPAM1 MG PO; +TRAZODONE50 MG PO; +VITAMIN D250 MCG PO
[2024-11-24 22:07] VITALS: BP 100/68
[2024-11-24] MEDS ORDERED: Ondansetron Hydrochloride 4 MG/2 ML VIAL IV ONE (22:15)
[2024-11-24] MEDS ORDERED: diphenhydrAMINE hydrochloride 50 MG/ML VIAL IV ONE (22:15)
[2024-11-24] MEDS ORDERED: Metoclopramide Hydrochloride 10 MG/2 ML VIAL IV ONE (22:15)
[2024-11-24] MEDS ORDERED: SODIUM CHLORIDE 0.9% 500 ML IV ONE (22:15)
[2024-11-24 23:17] LABS: BASO # 0.1 10*3/uL (0.0-0.1); BASO % 1.3 % (0.0-1.0); EOS # 0.3 10*3/uL (0.0-0.4); EOS % 5.9 % (1.0-4.0); MEAN CELL VOLUME 82.9 fl (80.0-94.0); MEAN CORPUSCULAR HGB 26.3 pg (27.0-31.0); MEAN PLATELET VOLUME 9.3 fl (9.6-12.3); MONO # 0.3 10*3/uL (0.1-1.0); MONO % 5.3 % (3.0-9.0); NEUT # 2.2 10*3/uL (2.3-7.9); NEUT % 46.7 % (47.0-73.0); NUCLEATED RED BLOOD CELL 0.0 % (0.0-0.0); NUCLEATED RED BLOOD CELL 0.0 10*3/uL (0.0-0.0); PLATELET COUNT AUTOMATED 275 10*3/uL (130-400); RED CELL DISTRI WIDTH 13.2 % (0-14.5)
[2024-11-24 23:28] LABS: ACT PARTIAL THROMBO TIME 28.5 SECONDS (20.0-32.1)
[2024-11-24 23:39] LABS: BUN 12 mg/dl (9-23); CPK 42 U/L (34-171); SGPT/ALT 10 U/L (5-49)
[2024-11-24] MEDS ORDERED: PREDNISONE20 M1 PO (23:54)
[2024-11-24] MEDS ORDERED: PROTONIX40 MG PO (23:54)
== END 2024-11-25 00:41 | disposition home or self-care (01) ==
LOC: ED 22:04
PROVIDERS: Emergency Medicine
DX: F17.220 Nicotine dependence, chewing tobacco, uncomplicated (principal); M94.0 Chondrocostal junction syndrome [Tietze]; K21.9 Gastro-esophageal reflux disease without esophagitis; R11.10 Vomiting, unspecified

== ENCOUNTER 2024-12-20 09:34 | Emergency (ER) | payer MEDICAID ==
[~2024-12-20] VITALS: Ht 187.9 cm; Wt 88.5 kg
[2024-12-20] MEDS ORDERED: SODIUM CHLORIDE 0.9% 1,000 ML IV ONE (09:40)
[2024-12-20 09:42] VITALS: BP 124/63
[2024-12-20 09:53] LABS: BASO # 0.1 10*3/uL (0.0-0.1); BASO % 1.3 % (0.0-1.0); EOS # 0.4 10*3/uL (0.0-0.4); EOS % 7.6 % (1.0-4.0); MEAN CELL VOLUME 84.5 fl (80.0-94.0); MEAN CORPUSCULAR HGB 26.8 pg (27.0-31.0); MEAN PLATELET VOLUME 9.3 fl (9.6-12.3); MONO # 0.2 10*3/uL (0.1-1.0); MONO % 4.6 % (3.0-9.0); NEUT # 2.2 10*3/uL (2.3-7.9); NEUT % 42.4 % (47.0-73.0); NUCLEATED RED BLOOD CELL 0.0 % (0.0-0.0); NUCLEATED RED BLOOD CELL 0.0 10*3/uL (0.0-0.0); PLATELET COUNT AUTOMATED 277 10*3/uL (130-400); RED CELL DISTRI WIDTH 13.8 % (0-14.5)
[2024-12-20 10:13] LABS: BUN 10 mg/dl (9-23)
[2024-12-20] MEDS ORDERED: CYCLOBENZAPRINE10 MG PO (10:27)
[2024-12-20] MEDS ORDERED: AMOX-CLAV 875-1 EACH PO (10:27)
== END 2024-12-20 10:35 | disposition home or self-care (01) ==
LOC: ED 09:34
PROVIDERS: Emergency Medicine
DX: R42 Dizziness and giddiness (principal); H66.91 Otitis media, unspecified, right ear; Z88.6 Allergy status to analgesic agent; M54.2 Cervicalgia